=== PATIENT | male | born 1935 | race Caucasian/White ===

== ENCOUNTER 2017-09-18 18:01 | Emergency (ER) | payer OTHER ==
--- NOTE | 2017-09-18 20:05 | RAD REPORT ---
EXAM DESCRIPTION: RAD - Abdomen Acute Series - 09/18/2017 7:49 pm CLINICAL HISTORY: Abdominal pain FINDINGS: The bowel gas pattern is unremarkable with moderate amount of stool throughout the colon. Free air is not seen beneath the diaphragm. Mild bibasilar interstitial lung opacities may represent pneumonitis or pulmonary fibrosis. Vascular calcifications are evident.
[2017-09-18] MEDS ORDERED: MINERAL OIL ENEMA 135 ML BTL PR ONE (20:33)
[2017-09-18 21:53] LABS: Absolute Lymphocytes (CBC) 1.8 K/uL (0.7-4.9); Absolute Monocytes 0.8 K/uL (0.1-1.3); Absolute Neutrophil 7.2 K/uL (1.8-8.0); Basophils % 0.9 % (0-1.3); Eosinophils % 4.5 % (0-4.4); Hematocrit 38.1 % (39.6-49.0); Lymphocytes % 17.7 % (15.3-44.8); MCH 28.4 pg (27.0-35.0); MCV 86.5 fL (80-100)
[2017-09-18 22:11] LABS: Albumin 3.1 g/dL (3.4-5.0); Bilirubin Direct 0.2 mg/dL (0-0.2); Bilirubin Total 0.7 mg/dL (0.2-1.0); Potassium 3.6 mmol/L (3.5-5.1); Protein, Total 7.9 g/dL (6.4-8.2)
--- NOTE | 2017-09-18 22:32 | EDPHYS ---
Physician Documentation [facility] Name: Hayden Marie Age: 82 yrs Sex: Male : 1935 Arrival Date: 09/18/2017 Time: 18:05 Bed 4 Private MD: Vance Thomas E ED Physician Amor Faith HPI: 09/18 19:18 This 82 yrs old Male presents to ER via Ambulatory with complaints of pkl Constipation. 19:18 Onset: The symptoms/episode began/occurred 1 week(s) ago. Associated signs and pkl symptoms: none. Historical: - Allergies: 18:25 Xanax; aj1 18:25 Geodon; aj1 - Home Meds: 18:25 atenolol 50 mg Oral tab 1 tab 2 times per day [Active]; hydrochlorothiazide 25 mg Oral aj1 tab 0.5 tab once daily [Active]; simvastatin 40 mg Oral tab 1 tab once daily [Active]; lisinopril 20 mg Oral tab 1 tab once daily [Active]; temazepam 15 mg Oral cap 1 cap once daily [Active]; Spiriva with HandiHaler 18 mcg inhalation CpDv 1 cap once daily [Active]; Symbicort 160-4.5 mcg/actuation inhalation HFAA 2 puffs 2 times per day [Active]; allopurinol 300 mg Oral tab 1 tab once daily [Active]; Lyrica Oral [Active]; - PMHx: 18:15 Hypertension; Hyperlipidemia; aj1 - Immunization history:: Flu vaccine is up to date. - Social history:: Smoking status: Patient/guardian denies using tobacco. - Ebola Screening: : Patient denies travel to an Ebola-affected area in the 21 days before illness onset. ROS: 19:18 Eyes: Negative for injury, pain, redness, and discharge, ENT: Negative for injury, pkl pain, and discharge, Neck: Negative for injury, pain, and swelling, Cardiovascular: Negative for chest pain, palpitations, and edema, Respiratory: Negative for shortness of breath, cough, wheezing, and pleuritic chest pain. 19:18 Abdomen/GI: Positive for constipation. 19:18 Back: Negative for acute changes. 19:18 : Negative for urinary symptoms. 19:18 MS/extremity: Negative for acute changes. 19:18 Skin: Negative for rash. 19:18 Neuro: Negative for altered mental status. Exam: 19:18 Head/Face: Normocephalic, atraumatic. Eyes: Pupils equal round and reactive to light, pkl extra-ocular motions intact. Lids and lashes normal. Conjunctiva and sclera are non-icteric and not injected. Cornea within normal limits. Periorbital areas with no swelling, redness, or edema. ENT: Nares patent. No nasal discharge, no septal abnormalities noted. Tympanic membranes are normal and external auditory canals are clear. Oropharynx with no redness, swelling, or masses, exudates, or evidence of obstruction, uvula midline. Mucous membranes moist. Neck: Trachea midline, no thyromegaly or masses palpated, and no cervical lymphadenopathy. Supple, full range of motion without nuchal rigidity, or vertebral point tenderness. No Meningismus. Chest/axilla: Normal chest wall appearance and motion. Nontender with no deformity. No lesions are appreciated. Cardiovascular: Regular rate and rhythm with a normal S1 and S2. No gallops, murmurs, or rubs. Normal PMI, no JVD. No pulse deficits. Respiratory: Lungs have equal breath sounds bilaterally, clear to auscultation and percussion. No rales, rhonchi or wheezes noted. No increased work of breathing, no retractions or nasal flaring. 19:18 Abdomen/GI: Inspection: distension, that is moderate, Bowel sounds: normal, Palpation: abdomen is soft and non-tender, in all quadrants, Rectal exam: Stool: guaiac negative, fecal impaction, that is severe. 19:18 Back: Exam negative for acute changes. 19:18 : Exam negative for acute changes. 19:18 Musculoskeletal/extremity: Exam is negative for acute changes. 19:18 Skin: Exam negative for rash. 19:18 Neuro: Orientation: is normal, Mentation: is normal, Cranial nerves: grossly normal, Motor: is normal. Vital Signs: 18:25 BP 112 / 79; Pulse 80; Resp 20; Temp 97.9; Pulse Ox 94% on R/A; Weight 77.11 kg (R); aj1 Height 5 ft. 10 in. (177.80 cm) (R); 19:15 BP 130 / 56; Pulse 79; Resp 20; Pulse Ox 94% on R/A; Pain 0/10; ak1 20:09 BP 135 / 76; Pulse 75; Resp 20; Pulse Ox 95% on R/A; Pain 0/10; ak1 21:49 BP 142 / 71; Pulse 79; Resp 20; Temp 98.1; Pulse Ox 95% on R/A; Pain 0/10; ak1 22:40 BP 131 / 74; Pulse 79; Resp 20; Pulse Ox 95% on R/A; Pain 0/10; ak1 18:25 Body Mass Index 24.39 (77.11 kg, 177.80 cm) aj1 MDM: 19:05 Patient medically screened. pkl 22:29 Data reviewed: vital signs, nurses notes, lab test result(s), radiologic studies, plain pkl films. ED course: Patient had good bowel movement in ER. Feeling much better.. 09/18 21:37 Order name: Amylase, Serum; Complete Time: 22:29 pkl 09/18 21:37 Order name: Basic Metabolic Panel; Complete Time: 22:29 pkl 09/18 21:37 Order name: CBC with Diff pkl 09/18 21:37 Order name: Creatinine for Radiology; Complete Time: 22:29 pkl 09/18 21:37 Order name: Hepatic Function; Complete Time: 22:29 pkl 09/18 21:37 Order name: Lipase; Complete Time: 22:29 pkl 09/18 19:17 Order name: XRAY Abdomen Acute Series; Complete Time: 21:36 pkl 09/18 21:37 Order name: IV Saline Lock; Complete Time: 21:42 pkl 09/18 21:37 Order name: Labs collected and sent; Complete Time: 21:42 pkl 09/18 22:08 Order name: CBC Smear Scan EDMS Administered Medications: 20:07 Drug: NS 0.9% 1000 ml Route: IV; Rate: 100 ml/hr; Site: right antecubital; ak1 21:43 Follow up: IV Status: Infusion continued upon admission ak1 22:47 Follow up: Response: No adverse reaction; IV Status: Order to discontinue infusion jd3 20:54 Drug: Mineral Oil 30 ml Route: MA; ak1 21:42 Follow up: Response: No adverse reaction ak1 Point of Care Testing: Guaiac: 19:18 Stool Guaiac: Negative; Stool Hemoccult Control: Pass; ak1 Disposition: 09/18/17 22:31 Discharged to Home. Impression: Constipation. - Condition is Stable. - Medication Reconciliation Form, Thank You Letter, Antibiotic Education, Prescription Opioid Use form. - Follow up: Vance Thomas MD; When: 2 - 3 days; Reason: Re-evaluation by your physician. - Problem is new. - Symptoms have improved. Signatures: Dispatcher [employer] EDJoana Galeana RN RN aj1 Amor Faith MD MD pkKath Ramsey RN RN ak1 Femi Mcknight RN RN jd3 Corrections: (The following items were deleted from the chart) 18:25 18:15 Allergies: No Known Allergies; aj1 aj 18:25 18:15 Home Meds: cholesterol medication; aj1 aj 18:25 18:15 Home Meds: blood pressure medication; aj1 aj 22:39 21:37 [facility] 22:48 22:31 09/18/2017 22:31 Discharged to Home. Impression: Constipation. Condition is jd3 Stable. Forms are Medication Reconciliation Form, Thank You Letter, Antibiotic Education, Prescription Opioid Use. Follow up: Vance Thomas; When: 2 - 3 days; Reason: Re-evaluation by your physician. Problem is new. Symptoms have improved. pkl
--- NOTE | 2017-09-18 22:32 | ER ---
Nurse's Notes [facility] Name: Hayden Marie Age: 82 yrs Sex: Male : 1935 Arrival Date: 09/18/2017 Time: 18:05 Bed 4 Private MD: Vance Thomas E Diagnosis: Constipation Presentation: 09/18 18:10 Presenting complaint: Patient states: Constipation for the past week, patient states aj1 that he has not had a bowel movement at all in that time. Reports lower abdominal pain. Denies N/V. Denies fever. Transition of care: patient was not received from another setting of care. Onset of symptoms was September 11, 2017. Risk Assessment: Do you want to hurt yourself or someone else? Patient reports no desire to harm self or others. Initial Sepsis Screen: Does the patient meet any 2 criteria? No. Patient's initial sepsis screen is negative. Does the patient have a suspected source of infection? No. Patient's initial sepsis screen is negative. Care prior to arrival: None. 18:10 Method Of Arrival: Ambulatory [facility] 18:10 Acuity: MERCEDES 3 aj1 Triage Assessment: 18:15 General: Appears in no apparent distress. comfortable, Behavior is calm, cooperative, aj1 appropriate for age. Pain: Complains of pain in right lower quadrant and left lower quadrant Pain currently is 3 out of 10 on a pain scale. 18:25 Neuro: Level of Consciousness is awake, alert, obeys commands. Cardiovascular: aj1 Patient's skin is warm and dry. Respiratory: Airway is patent Respiratory effort is even, unlabored, Respiratory pattern is regular, symmetrical. GI: Reports constipation, Patient currently denies diarrhea, nausea, vomiting. Historical: - Allergies: 18:25 Xanax; aj1 18:25 Geodon; aj1 - Home Meds: 18:25 atenolol 50 mg Oral tab 1 tab 2 times per day [Active]; hydrochlorothiazide 25 mg Oral aj1 tab 0.5 tab once daily [Active]; simvastatin 40 mg Oral tab 1 tab once daily [Active]; lisinopril 20 mg Oral tab 1 tab once daily [Active]; temazepam 15 mg Oral cap 1 cap once daily [Active]; Spiriva with HandiHaler 18 mcg inhalation CpDv 1 cap once daily [Active]; Symbicort 160-4.5 mcg/actuation inhalation HFAA 2 puffs 2 times per day [Active]; allopurinol 300 mg Oral tab 1 tab once daily [Active]; Lyrica Oral [Active]; - PMHx: 18:15 Hypertension; Hyperlipidemia; aj1 - Immunization history:: Flu vaccine is up to date. - Social history:: Smoking status: Patient/guardian denies using tobacco. - Ebola Screening: : Patient denies travel to an Ebola-affected area in the 21 days before illness onset. Screenin:15 Abuse screen: Denies threats or abuse. Denies injuries from another. Nutritional ak1 screening: No deficits noted. Tuberculosis screening: No symptoms or risk factors identified. Fall Risk None identified. Assessment: 19:15 General: Appears in no apparent distress. Behavior is calm, cooperative. Pain: Denies ak1 pain. Neuro: No deficits noted. Cardiovascular: No deficits noted. Respiratory: No deficits noted. GI: Abdomen is distended, Bowel sounds present X 4 quads. Abd is non tender X 4 quads Abd is rigid X 4 quads. Reports constipation, last BM was last week. pt stated he tried 2 fleet enemas at home as well as OTC stool softeners with no success. : No signs and/or symptoms were reported regarding the genitourinary system. EENT: No signs and/or symptoms were reported regarding the EENT system. Derm: No signs and/or symptoms reported regarding the dermatologic system. Musculoskeletal: No signs and/or symptoms reported regarding the musculoskeletal system. 20:54 Reassessment: Patient appears in no apparent distress at this time. pt tolerated ak1 procedure well. will continue to monitor. 21:38 Reassessment: Patient appears in no apparent distress at this time. pt remains ak1 constipated, no BM after enema. ERP notified. 22:28 Reassessment: pt had large BM, ERP notified. pt stated he does not wish to be admitted. ak1 Vital Signs: 18:25 BP 112 / 79; Pulse 80; Resp 20; Temp 97.9; Pulse Ox 94% on R/A; Weight 77.11 kg (R); aj1 Height 5 ft. 10 in. (177.80 cm) (R); 19:15 BP 130 / 56; Pulse 79; Resp 20; Pulse Ox 94% on R/A; Pain 0/10; ak1 20:09 BP 135 / 76; Pulse 75; Resp 20; Pulse Ox 95% on R/A; Pain 0/10; ak1 21:49 BP 142 / 71; Pulse 79; Resp 20; Temp 98.1; Pulse Ox 95% on R/A; Pain 0/10; ak1 22:40 BP 131 / 74; Pulse 79; Resp 20; Pulse Ox 95% on R/A; Pain 0/10; ak1 18:25 Body Mass Index 24.39 (77.11 kg, 177.80 cm) aj1 ED Course: 18:05 Patient arrived in ED. sb2 18:05 Vance Thomas MD is Private Physician. sb2 18:14 Triage completed. aj1 18:25 Arm band placed on Patient placed in waiting room, Patient notified of wait time. aj1 19:04 Kath Prado, RN is Primary Nurse. ak1 19:05 Amor Faith MD is Attending Physician. pkl 19:15 Patient has correct armband on for positive identification. Placed in gown. Bed in low ak1 position. Call light in reach. Side rails up X 1. Adult w/ patient. Pulse ox on. NIBP on. 19:15 Served as a camera repairer during rectal exam. ak1 19:28 Assisted to bedside commode. ak1 19:46 Patient moved to radiology via wheelchair. kp1 19:46 X-ray completed. Patient tolerated procedure well. kp1 19:47 XRAY Abdomen Acute Series In Process Unspecified. EDMS 20:08 Inserted saline lock: 20 gauge in right antecubital area, using aseptic technique. ak1 22:30 Vance Thomas MD is Referral Physician. pkl 22:41 IV discontinued, intact, bleeding controlled, No redness/swelling at site. Pressure jd3 dressing applied. Administered Medications: 20:07 Drug: NS 0.9% 1000 ml Route: IV; Rate: 100 ml/hr; Site: right antecubital; ak1 21:43 Follow up: IV Status: Infusion continued upon admission ak1 22:47 Follow up: Response: No adverse reaction; IV Status: Order to discontinue infusion jd3 20:54 Drug: Mineral Oil 30 ml Route: DC; ak1 21:42 Follow up: Response: No adverse reaction ak1 Point of Care Testing: Guaiac: 19:18 Stool Guaiac: Negative; Stool Hemoccult Control: Pass; ak1 Outcome: 21:49 Condition: stable ak1 21:49 Instructed on the need for admit. 22:31 Discharge ordered by . rodriguez 22:47 Discharged to home ambulatory, with family. jd3 22:48 Patient left the ED. jd3 Signatures: Dispatcher [employer] EDJoana Galeana RN RN [email or web address] Amor Faith MD MD pkl Krenek, Amber, RN RN ak1 Dot Huitron Jonathon, RN RN jd3 Meeta Cantu2 Corrections: (The following items were deleted from the chart) 18:25 18:15 Allergies: No Known Allergies; [place] [id number] 18:25 18:15 Home Meds: cholesterol medication; [place] [id number] 18:25 18:15 Home Meds: blood pressure medication; [place] [id number]
[2017-09-18 22:59] LABS: Anisocytosis 2+; Blood Morphology Comment NOTED (NOT SEEN); Platelet Estimate ADEQ; Teardrop Cell 2+; Urine White Blood Cell Casts OK
[2017-09-18 23:02] VITALS: O2SAT 95
[2017-09-18 23:03] VITALS: TEMP 98.1
[2017-09-18 23:04] VITALS: BP 131/74
== END 2017-09-18 22:48 | disposition home or self-care (01) ==
LOC: ER 18:01
DX: K59.00 Constipation, unspecified (principal); I10 Essential (primary) hypertension; E78.5 Hyperlipidemia, unspecified; Z88.8 Allergy status to other drugs, medicaments and biological substances
CPT/HCPCS: 36415; 74022; 80048; 80076; 82150; 83690; 85025; 96360; 96361; 99284

== ENCOUNTER 2017-11-30 07:52 | Inpatient (IN) | payer OTHER ==
[2017-11-30] MEDS ORDERED: NA CHLORIDE 0.9% 3,000 ML ONE (08:05)
[2017-11-30] MEDS ORDERED: NA CHLORIDE 0.9% 0 ML ONE (08:19)
[2017-11-30] MEDS ORDERED: MIDAZOLAM HCL 2 MG/2 ML INJ ONE (08:21)
[2017-11-30] MEDS ORDERED: PROPOFOL 1,000 MG/100 ML VIAL IV ONE (08:21)
[2017-11-30] MEDS ORDERED: NOREPINEPHRINE 4mg/D5W 250mL 4 MG/250 ML BAG IV ONE (08:28)
[2017-11-30] MEDS ORDERED: AMIODARONE HCL 450 MG in D5W 241 ML IV ONE (08:30)
[2017-11-30 08:41] LABS: Arterial Blood Carboxyhemoglob 0.8 % (0-1.5); Blood Gas Oxyhemoglobin 95.4 % (94-97); Blood O2 Saturation 96.9 % (92-98.5)
[2017-11-30] MEDS ORDERED: FENTANYL CITR 100 MCG/2 ML ONE (08:41)
[2017-11-30 09:08] LABS: Absolute Lymphocytes (CBC) 5.8 K/uL (0.7-4.9); Absolute Monocytes 0.5 K/uL (0.1-1.3); Absolute Neutrophil 11.4 K/uL (1.8-8.0); Eosinophils % 6.3 % (0-4.4); Hematocrit 34.2 % (39.6-49.0); Lymphocytes % 29.9 % (15.3-44.8); MCH 28.4 pg (27.0-35.0); MCV 93.1 fL (80-100); MPV 10.9 fL (7.6-11.3); Monocytes % 2.5 % (3.3-12.3); RBC Red Blood Cell Count 3.68 M/uL (4.33-5.43)
[2017-11-30 09:09] LABS: Protime INR 1.09
--- NOTE | 2017-11-30 09:14 | RAD REPORT ---
EXAM DESCRIPTION: RAD - Chest Single View - 11/30/2017 8:36 am CLINICAL HISTORY: Dyspnea, code 99, intubation COMPARISON: September 18 TECHNIQUE: AP portable chest image was obtained 0830 hours . FINDINGS: Patchy interstitial and alveolar opacities are present in the lung dutta. The baseline in terstitial fibrotic pattern is not substantially different. Inspiratory effort is shallow. Resuscitat ion paddles are in place. Endotracheal tube tip is at the T5 level 1 centimeter above the dmitriy. Hea rt size and vasculature are normal range for portable supine projection. No pneumothorax or large ple ural effusion. No acute bony abnormality seen. No acute aortic findings suspected. IMPRESSION: Endotracheal tube tip approximately 1 centimeter above the dmitriy. 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 Interstitial and patchy alveolar opacities are pr esent likely from edema.
--- NOTE | 2017-11-30 09:39 | RAD REPORT ---
EXAM DESCRIPTION: CT - Head Brain Wo Cont - 11/30/2017 9:29 am CLINICAL HISTORY: Transient alteration of awareness, intubation, altered mental status COMPARISON: None. TECHNIQUE: Axial 5 mm thick images of the head were obtained without IV contrast. All CT scans are performed using dose optimization technique as appropriate and may include automated exposure control or mA/KV adjustment according to patient size. FINDINGS: No intracranial hemorrhage, mass, edema or shift of mid-line structures. No acute infarcti on changes seen. Moderate atrophy and chronic ischemic changes present. Ventricular size is in propor tion to the amount of volume loss. Arterial tree calcifications are present. Right mastoid air cells are clear. Left mastoid opacification is present with external auditory canal and middle ear opacification as well. No air-fluid level in the paranasal sinuses. Nasopharyngeal op acification is present. No acute bony findings. IMPRESSION: Moderate atrophy and chronic ischemic change with no acute intracranial finding. Opacification of the naso pharynx is secondary to the endotracheal tube placement. Left mastoid air cell and middle ear opacification may be related to intubation as well. Otitis media or mastoiditis could also be present predating the intubation.
[2017-11-30 09:49] LABS: Potassium 3.7 mmol/L (3.5-5.1)
[2017-11-30 09:51] LABS: CKMB Creatine Kinase MB 14.6 ng/mL (0.3-3.6); Troponin (Emerg Dept Use Only) 0.8 ng/mL (0.0-0.045)
[2017-11-30 09:51] LABS: Urine Blood NEGATIVE (NEG); Urine Glucose NEGATIVE (NEG); Urine Protein TRACE (NEG)
[2017-11-30] MEDS ORDERED: ASPIRIN 600 MG/SUPP PR ONE (09:59)
[2017-11-30] MEDS ORDERED: VANCOMYCIN 1 GM/250 ML BAG ONE (10:00)
[2017-11-30] MEDS ORDERED: PIPER/TAZO/NS 3.375gm 3.375 GM/100 ML BAG ONE (10:00)
--- NOTE | 2017-11-30 10:13 | ER ---
Nurse's Notes [facility] Name: Hayden Marie Age: 82 yrs Sex: Male : 1935 Arrival Date: 11/30/2017 Time: 07:58 Bed 3 Private MD: Diagnosis: Acute respiratory failure;Altered mental status, unspecified;Hypotension;Sepsis Presentation: 11/30 07:55 Method Of Arrival: EMS: [facility] tw2 07:55 Presenting complaint: EMS states: initial call for SOB. Transition of care: patient was tw2 not received from another setting of care. Onset of symptoms was November 30, 2017. Risk Assessment: Do you want to hurt yourself or someone else? Patient reports no desire to harm self or others. Initial Sepsis Screen: Does the patient meet any 2 criteria? Temp <36.0*C (96.8*F)) or > 38.3*C (100.9*F). Mean Arterial Pressure (MAP) < 65. Altered Mental Status. Yes Does the patient have a suspected source of infection? No. Patient's initial sepsis screen is negative. Care prior to arrival: Oxygen administered. via a non-rebreather mask. 07:55 Acuity: MERCEDES 1 tw2 07:56 Compressions began at 07:56. tw2 Triage Assessment: 07:55 General: Appears distressed, uncomfortable, obese, Behavior is unresponsive. General: bp PT FOUND TO BE AGONAL AND PULSELESS, VFIB ON MONITOR ON ARRIVAL. CPR INITIATED ON ARRIVAL. Pain: Unable to use pain scale. Patient is unresponsive. Historical: - Allergies: 08:42 Geodon; tw2 08:42 Xanax; tw2 - Home Meds: 08:42 allopurinol 300 mg Oral tab 1 tab once daily [Active]; atenolol 50 mg Oral tab 1 tab 2 tw2 times per day [Active]; hydrochlorothiazide 25 mg Oral tab 0.5 tab once daily [Active]; lisinopril 20 mg Oral tab 1 tab once daily [Active]; Lyrica Oral [Active]; simvastatin 40 mg Oral tab 1 tab once daily [Active]; Spiriva with HandiHaler 18 mcg inhalation CpDv 1 cap once daily [Active]; Symbicort 160-4.5 mcg/actuation inhalation HFAA 2 puffs 2 times per day [Active]; temazepam 15 mg Oral cap 1 cap once daily [Active]; - PMHx: 08:42 Hyperlipidemia; Hypertension; tw2 - Immunization history:: Adult Immunizations. - Social history:: Smoking status: . - Ebola Screening: : Patient denies travel to an Ebola-affected area in the 21 days before illness onset. - Family history:: not pertinent. - Hospitalizations: : No recent hospitalization is reported. Screenin:00 Abuse screen: Denies threats or abuse. Denies injuries from another. Nutritional bp screening: No deficits noted. Tuberculosis screening: No symptoms or risk factors identified. 09:00 Fall Risk Secondary diagnosis (15 points) sedated and intubated. tw2 Assessment: 07:55 CPR assessment: unresponsive, agonal respirations, pulses present w/ compressions. bp Cardiac rhythm is V fib. General: Appears distressed, Behavior is unresponsive. Neuro: Level of Consciousness is unresponsive. EENT: Nares with drainage noted. Cardiovascular: Rhythm is ventricular fibrillation. Respiratory: Airway is compromised Respiratory pattern is agonal. GI: No deficits noted. Abdomen is non-distended. : Penile discharge is white. Derm: Wound noted left elbow. Musculoskeletal: Circulation, motion, and sensation intact. Range of motion: intact in all extremities. 07:55 General: RECD 82YO WM VIA [facility], ORIGINAL CALL OUT FOR COPD. PT RESPONSIVE BUT bp ALTERED ON SCENE, UNCOOPERATIVE WITH NRB EN ROUTE. ORIGINAL ROOM AIR SAT 80% ON SCENE, 92% ON NRB EN ROUTE. PT REMOVED OWN NRB EN ROUTE. ON ARRIVAL RESPIRATORY PATTERN NOTED TO BE AGONAL, PT DUSKY/CYANOTIC. NO PULSE PALPABLE, CPR INITIATED. 07:56 Reassessment: CPR INITIATED. bp 08:00 Reassessment: 1 AMP EPI R FA. bp 08:02 Reassessment: PULSE CHECK. VFIB ON MONITOR, UNSYNC DEFIB \T\ 200J. CPR RESUMED. 1 AMP bp BICARB VIA R FA. 08:04 Reassessment: ETT 7.5 PLACED BY , CONFIRMED BY COLORMIMETIC CO2 DETECTOR. PEA NOTED bp ON MONITOR. 1 AMP EPI VIA R FA. 08:10 Reassessment: 150MG AMIODARONE BOLUS VIA R FA. PEA ON MONITOR. bp 08:14 Reassessment: R FEM CVC PLACED BY . SR NOTED ON MONITOR. +PULSES. bp 08:15 Reassessment: ROSC. SEE CPR SHEET FOR DETAILS. PT INTUBATED, CVC IN PLACE. PT REMAINS bp GCS 3. 09:00 Reassessment: FAMILY AT B/S. CT PENDING. NGT AND ETT PLACEMENT VERIFIED BY CXR. bp 10:00 Reassessment: FAMILY AT B/S. VENT AT AC18, 550 TV, PEEP 5, 50% FI02, ETT 7.5 AT 23 CM. bp AMIO GTT \T\ 1MCG/MIN, LEVOPHED \T\ 17.5 MG/MIN, PROPOFOL \T\ 12.5 MCG/KG/MIN. REID DRAINING TO GRAVITY, NGT TO LIWS. ICU ADMIT IN PROCESS. Vital Signs: 08:20 BP 81 / 51; Pulse 66; Resp 18; Pulse Ox 95% on ETT vent; tw2 08:24 BP 74 / 44; Pulse 72; Resp 21; Temp 95.4; Pulse Ox 100% on ETT vent; tw2 08:30 BP 78 / 49; Pulse 78; Resp 18; Pulse Ox 98% on ETT vent; tw2 08:35 BP 81 / 54; Pulse 83; Resp 18; Temp 95.2(C); Pulse Ox 98% on ETT vent; tw2 08:37 Weight 75 kg (R); tw2 08:40 BP 75 / 41; Pulse 52; Resp 18; Pulse Ox 98% on ETT vent; tw2 08:45 BP 82 / 46; Pulse 75; Resp 17; Pulse Ox 98% on ETT vent; tw2 08:50 BP 76 / 44; Pulse 75; Resp 18; Pulse Ox 98% on ETT vent; tw2 08:55 BP 92 / 56; Pulse 67; Resp 18; Pulse Ox 98% on ETT vent; tw2 09:00 BP 85 / 56; Pulse 66; Resp 18; Pulse Ox 98% on ETT vent; tw2 09:00 BP 85 / 56; Pulse 66; Resp 18; Pulse Ox 98% on ETT vent; tw2 09:05 BP 88 / 49; Pulse 77; Resp 18; Pulse Ox 98% on ETT vent; tw2 09:10 BP 88 / 49; Pulse 73; Resp 18; Temp 94(C); Pulse Ox 98% on ETT vent; tw2 09:15 BP 91 / 48; Pulse 72; Resp 18; Temp 94(C); Pulse Ox 98% on ETT vent; tw2 09:20 BP 77 / 48; Pulse 72; Resp 18; Pulse Ox 98% on ETT ambu; tw2 09:25 BP 77 / 48; Pulse 72; Resp 18; Pulse Ox 98% on ETT ambu; tw2 09:42 BP 74 / 40; Pulse 66; Resp 18; Temp 93.7; Pulse Ox 95% on ETT vent; tw2 09:45 BP 73 / 41; Pulse 65; Resp 18; Pulse Ox 95% on ETT vent; tw2 09:50 BP 71 / 40; Pulse 69; Resp 18; Pulse Ox 95% on ETT vent; jb1 09:55 BP 77 / 45; Pulse 67; Resp 18; Pulse Ox 95% on ETT vent; tw2 10:00 BP 83 / 49; Pulse 66; Resp 18; Pulse Ox 95% on ETT vent; tw2 10:05 BP 92 / 47; Pulse 66; Resp 18; Pulse Ox 96% on ETT vent; tw2 10:10 BP 87 / 48; Pulse 67; Resp 18; Temp 94.1; Pulse Ox 95% on ETT vent; tw2 10:15 BP 86 / 49; Pulse 65; Resp 18; Pulse Ox 95% on ETT vent; tw2 10:25 BP 85 / 48; Pulse 65; Resp 18; Temp 94.3(C); Pulse Ox 96% on ETT vent; tw2 10:30 BP 92 / 54; Pulse 68; Resp 18; Pulse Ox 96% on ETT vent; tw2 10:35 BP 111 / 54; Pulse 69; Resp 18; Pulse Ox 100% on ETT vent; tw2 10:35 Temp 94.8(C); tw2 10:40 BP 98 / 56; Pulse 67; Resp 18; Pulse Ox 97% on ETT vent; tw2 10:45 BP 100 / 56; Pulse 67; Resp 18; Pulse Ox 98% on ETT vent; tw2 10:50 BP 98 / 59; Pulse 67; Resp 18; Temp 95(C); Pulse Ox 98% on ETT vent; tw2 10:51 Temp 94.9(C); tw2 10:55 BP 98 / 57; Pulse 67; Resp 18; Temp 95(C); Pulse Ox 98% ; bp 11:00 BP 99 / 57; Pulse 67; Resp 18; Temp 95.2; Pulse Ox 98% ; bp 11:05 BP 97 / 59; Pulse 68; Resp 18; Temp 95.3; Pulse Ox 98% ; bp 11:10 BP 101 / 57; Pulse 69; Resp 18; Temp 95.7; Pulse Ox 99% ; bp 11:15 BP 94 / 57; Pulse 69; Resp 18; Pulse Ox 99% on ETT vent; tw2 11:20 BP 102 / 61; Pulse 80; Resp 18; Pulse Ox 99% on ETT vent; tw2 11:25 BP 99 / 57; Pulse 69; Resp 18; Temp 96(C); Pulse Ox 99% on ETT vent; tw2 11:30 BP 95 / 58; Pulse 70; Resp 14; Temp 96.1; Pulse Ox 99% ; bp 11:30 BP 95 / 58; Pulse 69; Resp 18; Temp 96.1(C); Pulse Ox 99% on ETT vent; tw2 08:24 warm blankets layered on at this time. Vent: assist control Rate 18, tidal vol 550 per tw2 Kaur,RT 08:35 bear hugger applied tw2 09:15 provider notified, ok to go to CT at this time. tw2 09:[address] tw2 09:[address] tw2 09:42 provider aware tw2 10:25 rate increase of Levo ordered at this time per Dr. Anton tw2 ED Course: 07:55 Patient has correct armband on for positive identification. Placed in gown. Bed in low bp position. Call light in reach. Side rails up X2. site monitor on. Pulse ox on. NIBP on. 07:58 Patient arrived in ED. rn 07:58 Missed attempt(s): 22 gauge in right antecubital area. per Yury,RN. Missed attempt(s): tw2 22 gauge in right forearm. per Yury<RN. Bleeding controlled, band aid applied, catheter tip intact. Missed attempt(s): 22 gauge in left forearm. Bleeding controlled, band aid applied, catheter tip intact. Missed attempt(s): 22 gauge in left antecubital area. Bleeding controlled, band aid applied, catheter tip intact. 07:59 Inserted saline lock: 22 gauge in right forearm, using aseptic technique. ,using tw2 aseptic technique. per KATIE Licona. 08:04 Bed in low position. Intubation: 7.5 Fr. ETT placed orally. Performed by Wilfred Anton MD tw2 Successful on first attempt. Placement verified by CO2 detector w/ + color change, auscultating bilateral breath sounds, Ventilated with Ambu bag. 08:06 Assisted provider with central line placement. Set up central line tray. Triple lumen tw2 line placed in right femoral. Line placed by Wilfred Anton MD Placement verified by blood return, Dressed with Tegaderm, Blood was collected. 08:14 EKG done, by automatic equipment technician. reviewed by Wilfred Anton MD. at1 08:15 Wilfred Anton MD is Attending Physician. rn 08:20 NGT: inserted 16 Fr. via left nare. verified placement of air over stomach, to tw2 intermittent suction. 08:25 X-ray completed. Portable x-ray completed in exam room. Patient tolerated procedure jb2 well. 08:37 XRAY CXR (1 view) In Process Unspecified. EDMS 08:40 Triage completed. tw2 08:40 Arm band placed on. tw2 08:50 Sputum Culture Sent. tw2 09:05 Yury Renteria, RN is Primary Nurse. bp 09:05 OG 14F to intermediate suction. tw2 09:11 Reid cath inserted, using sterile technique, 16 Fr., by me, balloon inflated, urine jb1 specimen collected. 09:11 Urine collected: Reid catheter specimen, cloudy, alfred colored. jb1 09:29 CT Head Brain wo Cont In Process Unspecified. EDMS 10:06 EKG done, by automatic equipment technician. reviewed by Wilfred Anton MD Repeat EKG. at1 10:12 Mildred Roque MD is Hospitalizing Provider. rn 11:46 Patient admitted, IV remains in place. bp Restraints: 08:15 Non-Violent Restraint: Order obtained. Initiated on November 30, 2017 at 08:00 Restraint bp Education provided to family/significant other/legally authorized lifeline representatives. Actions/Behavior observed: Confused/disoriented, has difficulty remembering/follow instructions, has decreased level of consciousness, unable to follow instructions, Less restrictive alternatives attempted: decrease environmental stimuli, 1:1 patient care, placed near Nurse station, reoriented to location, medications evaluated, medicated for pain/anxiety, repositioned, performed diversional activities, lines/tubes covered, eliminated unnecessary lines/tubes, Alternative interventions: Ineffective. Clinical justification for use: airway protection, line protection, patient safety, Mental status: agitated/restless, Cognition: unable to follow commands, Circulation: Within defined parameters (based on Cardiovascular assessment) Skin integrity: Within defined parameters (based on Integumentary assessment) Signs of injury related to restraint: No injuries noted. Range of Motion (ROM): performed. Hydration/Food: patient declined. Elimination/Hygiene: with urinary catheter, Restraint status: Soft wrist restraint (Right) Started. Soft wrist restraint (Left) Started. Criteria to discontinue Restraint not met. Restraint continued. 10:00 Non-Violent Restraint: Actions/Behavior observed: has decreased level of consciousness, bp unable to follow instructions, Less restrictive alternatives attempted: decrease environmental stimuli, 1:1 patient care, placed near Nurse station, reoriented to location, medications evaluated, medicated for pain/anxiety, Alternative interventions: Ineffective. Clinical justification for use: airway protection, line protection, patient safety, Mental status: agitated/restless, confused, Cognition: unable to follow commands, Circulation: Within defined parameters (based on Cardiovascular assessment) Skin integrity: Within defined parameters (based on Integumentary assessment) Signs of injury related to restraint: No injuries noted. Range of Motion (ROM): performed. Elimination/Hygiene: with urinary catheter, Restraint status: Soft wrist restraint (Right) Continued. Soft wrist restraint (Left) Continued. Criteria to discontinue Restraint not met. Restraint continued. Administered Medications: 08:00 Drug: Sodium Bicarbonate 1 amp Route: IVP; Site: right femoral; bp 09:07 Follow up: Response: No adverse reaction bp 08:10 Drug: amiodarone 150 mg Route: IVP; Site: right wrist; tw2 08:15 Follow up: Response: No adverse reaction tw2 08:12 Drug: NS 0.9% 1000 ml Route: IV; Rate: 1000 ml; Site: right femoral; tw2 09:00 Follow up: IV Status: Completed infusion; IV Intake: 1000ml bp 08:15 Drug: Versed 3 mg Route: IVP; Site: right femoral; tw2 08:45 Follow up: Response: No adverse reaction tw2 08:26 Drug: Levophed (4 mg/250 mL D5W 4 mcg/min {Note: central line.} Route: IV; Rate: tw2 calculated rate; Site: Other; 08:28 Follow up: Rate change 10 mcg/min tw2 10:05 Follow up: Rate change 15 mcg/min bp 10:35 Follow up: Rate change 17.5 mcg/min bp 11:43 Follow up: IV Status: Infusion continued upon admission tw2 08:30 Drug: amiodarone 900 mg, D5W 500 ml Route: IVPB; Rate: 1 mg/min; Site: right femoral; tw2 12:15 Follow up: IV Status: Infusion continued upon admission tw2 08:36 Drug: fentaNYL (PF) 75 mcg Route: IVP; Site: right forearm; tw2 08:45 Follow up: Response: No adverse reaction tw2 08:36 Drug: Propofol 5 mcg/kg/min Route: IV; Rate: calculated rate; Site: right femoral; tw2 10:34 Follow up: Rate change 12.5 mcg/kg/min bp 11:10 Follow up: Rate change 20 mcg/kg/min bp 11:41 Follow up: IV Status: Infusion continued upon admission tw2 09:45 Drug: Zosyn 3.375 grams Route: IVPB; Infused Over: 60 mins; Site: right forearm; bp 10:33 Follow up: IV Status: Completed infusion; IV Intake: 100ml bp 10:00 Drug: Aspirin Suppository 300 mg Route: TN; bp 10:20 Follow up: Response: No adverse reaction bp 10:30 Drug: vancoMYCIN 1 grams Route: IVPB; Infused Over: 2 hrs; Site: right forearm; bp 11:43 Follow up: IV Status: Infusion continued upon admission tw2 Intake: 09:00 IV: 1000ml; Total: 1000ml. bp 10:33 IV: 100ml; Total: 1100ml. bp Output: 09:46 Urine: 1650ml (Reid); Total: 1650ml. tw2 Outcome: 08:15 Outcome Resuscitation successful tw2 10:13 Decision to Hospitalize by Provider. rn 11:47 Admitted to ICU accompanied by nurse, accompanied by tech, family with patient, via bp stretcher, room 6, with oxygen, on monitor, with chart, Report called to JAXON WILSON 11:47 critical 11:47 Instructed on the need for admit. 12:15 Patient left the ED. tw2 Signatures: Dispatcher [employer] EDMS Eduin Cisneros jb1 QasimSincere jb2 Wilfred Anton MD MD rn Gonzales, Amanda, culinary instructor EKG Tat1 Taylor Kirk RN RN tw2 Yury Renteria RN RN bp Corrections: (The following items were deleted from the chart) 08:45 08:39 BP 81 / 54; Pulse 83bpm; Resp 18bpm; Pulse Ox 98% ET / Ventilator; Temp 95.2F tw2 Catheter; bear hugger applied; tw2 10:05 09:43 BP 73 / 41; Pulse 65bpm; Resp 18bpm; Pulse Ox 95% ET / Ventilator; tw2 tw 10:05 09:58 BP 77 / 45; Pulse 67bpm; Resp 18bpm; Pulse Ox 95% ET / Ventilator; jb1 tw 10:16 10:10 BP 87 / 48; Pulse 67bpm; Resp 18bpm; Pulse Ox 95% ET / Ventilator; tw2 tw 10:50 08:00 Compressions began at 08:00. 10 08:39 Acuity: MERCEDES 1 07:58 Care prior to arrival: Oxygen administered. via a non-rebreather mask, 07:58 Initial Sepsis Screen: Does the patient meet any 2 criteria? Temp <36.0*C tw2 (96.8*F)) or > 38.3*C (100.9*F). Mean Arterial Pressure (MAP) < 65. Altered Mental Status. Yes Does the patient have a suspected source of infection? No. Patient's initial sepsis screen is negative. 07:58 Presenting complaint: EMS states: initial call for SOB 07:58 Transition of care: patient was not received from another setting of care. 07:58 Onset of symptoms was November 30, 2017 07:58 Risk Assessment: Do you want to hurt yourself or someone else? Patient reports no desire to harm self or others. 07:58 Method Of Arrival: EMS: [facility] 11:04 08:15 Reassessment: ROSC. SEE CPR SHEET FOR DETAILS. PT INTUBATED, CVC IN PLACE. PT bp REMAINS GCS 3 bp 11:07 08:00 Non-Violent Restraint: Order obtained. Initiated on November 30, 2017 at 08:00 bp Restraint Education provided to family/significant other/legally authorized lifeline representatives. Actions/Behavior observed: Confused/disoriented, has difficulty remembering/follow instructions, has decreased level of consciousness, unable to follow instructions, Less restrictive alternatives attempted: decrease environmental stimuli, 1:1 patient care, placed near Nurse station, reoriented to location, medications evaluated, medicated for pain/anxiety, repositioned, performed diversional activities, lines/tubes covered, eliminated unnecessary lines/tubes, Alternative interventions: Ineffective. Clinical justification for use: airway protection, line protection, patient safety, Mental status: agitated/restless, Cognition: unable to follow commands, Circulation: Within defined parameters (based on Cardiovascular assessment) Skin integrity: Within defined parameters (based on Integumentary assessment) Signs of injury related to restraint: No injuries noted. Range of Motion (ROM): performed. Hydration/Food: patient declined. Elimination/Hygiene: with urinary catheter, Restraint status: Soft wrist restraint (Right) Started. Soft wrist restraint (Left) Started. Criteria to discontinue Restraint not met. Restraint continued bp 11:40 11:38 Outcome Resuscitation successful tw2 tw2
--- NOTE | 2017-11-30 10:13 | EDPHYS ---
Physician Documentation [facility] Name: Hayden Marie Age: 82 yrs Sex: Male : 1935 Arrival Date: 11/30/2017 Time: 07:58 Bed 3 Private MD: ED Physician Wilfred Anton HPI: 11/30 08:47 This 82 yrs old Male presents to ER via Unassigned with complaints of sob. rn 08:47 The patient has shortness of breath at rest. Onset: The symptoms/episode began/occurred rn 2 day(s) ago. Duration: The symptoms are continuous. The patient's shortness of breath is aggravated by exertion, light activity, supine position. Severity of symptoms: At their worst the symptoms were moderate in the emergency department the symptoms are worse. The patient has experienced similar episodes in the past. Per , sob over last few days, hx of COPD, no chest pain, got worse today, called 911, was talking to EMS, fighting facemask, immediately upon arrival here became somnolent, unresponsive, tachycardic and irregular, difficult to feel pulse, CPR begun.. Historical: - Allergies: 08:42 Geodon; tw2 08:42 Xanax; tw2 - Home Meds: 08:42 allopurinol 300 mg Oral tab 1 tab once daily [Active]; atenolol 50 mg Oral tab 1 tab 2 tw2 times per day [Active]; hydrochlorothiazide 25 mg Oral tab 0.5 tab once daily [Active]; lisinopril 20 mg Oral tab 1 tab once daily [Active]; Lyrica Oral [Active]; simvastatin 40 mg Oral tab 1 tab once daily [Active]; Spiriva with HandiHaler 18 mcg inhalation CpDv 1 cap once daily [Active]; Symbicort 160-4.5 mcg/actuation inhalation HFAA 2 puffs 2 times per day [Active]; temazepam 15 mg Oral cap 1 cap once daily [Active]; - PMHx: 08:42 Hyperlipidemia; Hypertension; tw2 - Immunization history:: Adult Immunizations. - Social history:: Smoking status: . - Ebola Screening: : Patient denies travel to an Ebola-affected area in the 21 days before illness onset. - Family history:: not pertinent. - Hospitalizations: : No recent hospitalization is reported. ROS: 08:47 Unable to obtain ROS due to obtunded state. rn Exam: 08:49 Constitutional: This is a well developed, well nourished patient who is somnolent, rn unresponsive, slow breathing and unresponsive to pain, mottled and cool to touch Head/Face: Normocephalic, atraumatic. Eyes: PERRL ENT: dry MM, no stridor Cardiovascular: tachycardic, irregular, no peripheral pulses obtained Respiratory: bradypnea with poor inspiratory air flow Abdomen/GI: soft, non-tender Skin: Mottled MS/ Extremity: Cool and mottled ext, no pulse Neuro: GCS 3 Vital Signs: 08:20 BP 81 / 51; Pulse 66; Resp 18; Pulse Ox 95% on ETT vent; tw2 08:24 BP 74 / 44; Pulse 72; Resp 21; Temp 95.4; Pulse Ox 100% on ETT vent; tw2 08:30 BP 78 / 49; Pulse 78; Resp 18; Pulse Ox 98% on ETT vent; tw2 08:35 BP 81 / 54; Pulse 83; Resp 18; Temp 95.2(C); Pulse Ox 98% on ETT vent; tw2 08:37 Weight 75 kg (R); tw2 08:40 BP 75 / 41; Pulse 52; Resp 18; Pulse Ox 98% on ETT vent; tw2 08:45 BP 82 / 46; Pulse 75; Resp 17; Pulse Ox 98% on ETT vent; tw2 08:50 BP 76 / 44; Pulse 75; Resp 18; Pulse Ox 98% on ETT vent; tw2 08:55 BP 92 / 56; Pulse 67; Resp 18; Pulse Ox 98% on ETT vent; tw2 09:00 BP 85 / 56; Pulse 66; Resp 18; Pulse Ox 98% on ETT vent; tw2 09:00 BP 85 / 56; Pulse 66; Resp 18; Pulse Ox 98% on ETT vent; tw2 09:05 BP 88 / 49; Pulse 77; Resp 18; Pulse Ox 98% on ETT vent; tw2 09:10 BP 88 / 49; Pulse 73; Resp 18; Temp 94(C); Pulse Ox 98% on ETT vent; tw2 09:15 BP 91 / 48; Pulse 72; Resp 18; Temp 94(C); Pulse Ox 98% on ETT vent; tw2 09:20 BP 77 / 48; Pulse 72; Resp 18; Pulse Ox 98% on ETT ambu; tw2 09:25 BP 77 / 48; Pulse 72; Resp 18; Pulse Ox 98% on ETT ambu; tw2 09:42 BP 74 / 40; Pulse 66; Resp 18; Temp 93.7; Pulse Ox 95% on ETT vent; tw2 09:45 BP 73 / 41; Pulse 65; Resp 18; Pulse Ox 95% on ETT vent; tw2 09:50 BP 71 / 40; Pulse 69; Resp 18; Pulse Ox 95% on ETT vent; jb1 09:55 BP 77 / 45; Pulse 67; Resp 18; Pulse Ox 95% on ETT vent; tw2 10:00 BP 83 / 49; Pulse 66; Resp 18; Pulse Ox 95% on ETT vent; tw2 10:05 BP 92 / 47; Pulse 66; Resp 18; Pulse Ox 96% on ETT vent; tw2 10:10 BP 87 / 48; Pulse 67; Resp 18; Temp 94.1; Pulse Ox 95% on ETT vent; tw2 10:15 BP 86 / 49; Pulse 65; Resp 18; Pulse Ox 95% on ETT vent; tw2 10:25 BP 85 / 48; Pulse 65; Resp 18; Temp 94.3(C); Pulse Ox 96% on ETT vent; tw2 10:30 BP 92 / 54; Pulse 68; Resp 18; Pulse Ox 96% on ETT vent; tw2 10:35 BP 111 / 54; Pulse 69; Resp 18; Pulse Ox 100% on ETT vent; tw2 10:35 Temp 94.8(C); tw2 10:40 BP 98 / 56; Pulse 67; Resp 18; Pulse Ox 97% on ETT vent; tw2 10:45 BP 100 / 56; Pulse 67; Resp 18; Pulse Ox 98% on ETT vent; tw2 10:50 BP 98 / 59; Pulse 67; Resp 18; Temp 95(C); Pulse Ox 98% on ETT vent; tw2 10:51 Temp 94.9(C); tw2 10:55 BP 98 / 57; Pulse 67; Resp 18; Temp 95(C); Pulse Ox 98% ; bp 11:00 BP 99 / 57; Pulse 67; Resp 18; Temp 95.2; Pulse Ox 98% ; bp 11:05 BP 97 / 59; Pulse 68; Resp 18; Temp 95.3; Pulse Ox 98% ; bp 11:10 BP 101 / 57; Pulse 69; Resp 18; Temp 95.7; Pulse Ox 99% ; bp 11:15 BP 94 / 57; Pulse 69; Resp 18; Pulse Ox 99% on ETT vent; tw2 11:20 BP 102 / 61; Pulse 80; Resp 18; Pulse Ox 99% on ETT vent; tw2 11:25 BP 99 / 57; Pulse 69; Resp 18; Temp 96(C); Pulse Ox 99% on ETT vent; tw2 11:30 BP 95 / 58; Pulse 70; Resp 14; Temp 96.1; Pulse Ox 99% ; bp 11:30 BP 95 / 58; Pulse 69; Resp 18; Temp 96.1(C); Pulse Ox 99% on ETT vent; tw2 08:24 warm blankets layered on at this time. Vent: assist control Rate 18, tidal vol 550 per tw2 Kaur,RT 08:35 bear hugger applied tw2 09:15 provider notified, ok to go to CT at this time. tw2 09:[address] tw2 09:[address] tw2 09:42 provider aware tw2 10:25 rate increase of Levo ordered at this time per Dr. Anton tw2 Procedures: 08:49 CPR: See CPR flow sheet. Initial patient assessment: unresponsive, agonal respirations, rn pulses present w/ compressions, The presenting cardiac rhythm is V fib. respirations assisted with BVM, Compressions: began Meds given: Epinephrine Amiodarone, Defibrillation: 200 joules X 1. regained rhythm, regained respirations. Intubation: Ventilated with 100% NRB prior to procedure. O2 saturation prior to procedure was 88 %. Intubated orally using # 4 Estrella blade with 7.5 mm ETT. was successful on first attempt. Cricoid pressure applied during procedure. Tube secured with ETT giraldo at right side of mouth measured 23 cm at lip. Placement verified by CXR, CO2 detector with (+) color change, auscultating bilateral breath sounds, O2 saturation after procedure was 98 %. Patient tolerated well. Central Line: the site was prepped with Betadine, a triple lumen catheter was inserted, in the right femoral vein, in 1 attempts. placement was verified, by blood return, the site was dressed with Tegaderm, using sterile technique, the patient tolerated the procedure, well. MDM: 08:15 Patient medically screened. rn 10:08 Differential diagnosis: Anemia Chronic Obstructive Pulmonary Disease Myocardial rn Infarction pneumonia, Pneumothorax pulmonary edema, reactive airway disease, Sepsis. Antibiotic administration: Data reviewed: vital signs, nurses notes, lab test result(s), EKG, radiologic studies, CT scan, plain films, and as a result, I will admit patient. Counseling: I had a detailed discussion with the patient and/or guardian regarding: the historical points, exam findings, and any diagnostic results supporting the discharge/admit diagnosis, lab results, radiology results, the need for further work-up and treatment in the hospital. Response to treatment: the patient's symptoms have mildly improved after treatment, and as a result, I will admit patient. Admission orders: after a detailed discussion of the patient's condition and case, the admit orders are written by me. ED course: Pt more alert, fighting vent and tube, requiring sedation, given abx for elevated WBC count and lactate, fluids, more regular rhythm with amiodarone. Updated family, and will admit to Dr. Roque. . 11/30 08:17 Order name: ABG; Complete Time: 09:00 11/30 08:17 Order name: Blood Culture Adult (2) rn 11/30 08:17 Order name: BMP; Complete Time: : rn 11/30 08:17 Order name: CBC with Diff; Complete Time: 11/30 08:17 Order name: Ckmb; Complete Time: :11/30 08:17 Order name: CPK; Complete Time: :11/30 08:17 Order name: NT PRO-BNP; Complete Time: :11/30 08:17 Order name: PT-INR; Complete Time: :11/30 08:17 Order name: Ptt, Activated; Complete Time: : rn 11/30 08:17 Order name: Troponin (emerg Dept Use Only); Complete Time: :11/30 08:17 Order name: Procalcitonin; Complete Time: : rn 11/30 08:17 Order name: Lactate; Complete Time: 09:37 rn 11/30 08:17 Order name: Flu; Complete Time: 09:31 rn 11/30 08:34 Order name: Sputum Culture eb 11/30 08:17 Order name: XRAY CXR (1 view); Complete Time: 09:31 rn 11/30 08:17 Order name: EKG; Complete Time: 08:18 rn 11/30 08:17 Order name: Cardiac monitoring; Complete Time: 08:29 rn 11/30 09:00 Order name: CT Head Brain wo Cont; Complete Time: 09:40 rn 11/30 09:07 Order name: Urine Dipstick--Ancillary (enter results); Complete Time: 10: 11/30 08:17 Order name: EKG - Nurse/Tech; Complete Time: 08:31 rn 11/30 08:17 Order name: IV Saline Lock; Complete Time: 08:31 11/30 08:17 Order name: Labs collected and sent; Complete Time: 08: 11/30 08:17 Order name: O2 Per Protocol; Complete Time: 08:32 rn 11/30 08:17 Order name: O2 Sat Monitoring; Complete Time: 08:33 rn 11/30 08:30 Order name: NG Tube; Complete Time: 08:31 11/30 08:30 Order name: Floyd; Complete Time: 08:31 11/30 08:31 Order name: Caesar Forrest; Complete Time: 08:45 11/30 10:22 Order name: Restraint:Non-Violent; Complete Time: 10:22 bp Administered Medications: 08:00 Drug: Sodium Bicarbonate 1 amp Route: IVP; Site: right femoral; bp 09:07 Follow up: Response: No adverse reaction bp 08:10 Drug: amiodarone 150 mg Route: IVP; Site: right wrist; tw2 08:15 Follow up: Response: No adverse reaction tw2 08:12 Drug: NS 0.9% 1000 ml Route: IV; Rate: 1000 ml; Site: right femoral; tw2 09:00 Follow up: IV Status: Completed infusion; IV Intake: 1000ml bp 08:15 Drug: Versed 3 mg Route: IVP; Site: right femoral; tw2 08:45 Follow up: Response: No adverse reaction tw2 08:26 Drug: Levophed (4 mg/250 mL D5W 4 mcg/min {Note: central line.} Route: IV; Rate: tw2 calculated rate; Site: Other; 08:28 Follow up: Rate change 10 mcg/min tw2 10:05 Follow up: Rate change 15 mcg/min bp 10:35 Follow up: Rate change 17.5 mcg/min bp 11:43 Follow up: IV Status: Infusion continued upon admission tw2 08:30 Drug: amiodarone 900 mg, D5W 500 ml Route: IVPB; Rate: 1 mg/min; Site: right femoral; tw2 12:15 Follow up: IV Status: Infusion continued upon admission tw2 08:36 Drug: fentaNYL (PF) 75 mcg Route: IVP; Site: right forearm; tw2 08:45 Follow up: Response: No adverse reaction tw2 08:36 Drug: Propofol 5 mcg/kg/min Route: IV; Rate: calculated rate; Site: right femoral; tw2 10:34 Follow up: Rate change 12.5 mcg/kg/min bp 11:10 Follow up: Rate change 20 mcg/kg/min bp 11:41 Follow up: IV Status: Infusion continued upon admission tw2 09:45 Drug: Zosyn 3.375 grams Route: IVPB; Infused Over: 60 mins; Site: right forearm; bp 10:33 Follow up: IV Status: Completed infusion; IV Intake: 100ml bp 10:00 Drug: Aspirin Suppository 300 mg Route: MS; bp 10:20 Follow up: Response: No adverse reaction bp 10:30 Drug: vancoMYCIN 1 grams Route: IVPB; Infused Over: 2 hrs; Site: right forearm; bp 11:43 Follow up: IV Status: Infusion continued upon admission tw2 Disposition: 10:08 Critical Care:. rn Disposition: 11/30/17 10:13 Hospitalization ordered by Mildred Roque for Inpatient Admission. Preliminary diagnosis are Acute respiratory failure, Altered mental status, unspecified, Hypotension, Sepsis. - Bed requested for Intensive Care Unit. - Status is Inpatient Admission. tw2 - Condition is Serious. - Problem is new. - Symptoms have improved. UTI on Admission? No Critical care time excluding procedures: 10:08 Critical care time: Bedside Care: 25 minutes, Consultation: 5 minutes, Family rn Intervention: 5 minutes. Total time: 35 minutes Signatures: Dispatcher [employer] EDMS Wilfred Anton MD MD rn Wise, Tara, RN RN tw2 Yury Renteria RN RN Kina Schreiber Corrections: (The following items were deleted from the chart) 11:22 10:13 Hospitalization Ordered by Mildred Roque MD for Inpatient Admission. Preliminary eb diagnosis is Acute respiratory failure; Altered mental status, unspecified; Hypotension; Sepsis. Bed requested for Intensive Care Unit. Status is Inpatient Admission. Condition is Serious. Problem is new. Symptoms have improved. UTI on Admission? No. rn 12:15 11:22 11/30/2017 10:13 Hospitalization Ordered by Mildred Roque MD for Inpatient tw2 Admission. Preliminary diagnosis is Acute respiratory failure; Altered mental status, unspecified; Hypotension; Sepsis. Bed requested for Intensive Care Unit. Status is Inpatient Admission. Condition is Serious. Problem is new. Symptoms have improved. UTI on Admission? No. eb
[2017-11-30] MEDS ORDERED: ONDANSETRON 4 MG/2 ML VIAL IV PRN (11:52)
[2017-11-30] MEDS ORDERED: NA CHLORIDE 0.9% 1,000 ML IV SCH (11:52)
[2017-11-30] MEDS ORDERED: IPRATROPIUM BROM 0.5MG/2.5ML NEB SCH (12:00)
[2017-11-30] MEDS ORDERED: MIDAZOLAM HCL 2 MG/2 ML INJ IV PRN (12:56)
[2017-11-30] MEDS ORDERED: PROPOFOL 1,000 MG/100 ML VIAL IV PRN (12:56)
[2017-11-30] MEDS: INSULIN -REGULAR HUMAN 50 UNIT/0.5 ML ML SQ SCH ×3 (12:56→21:16)
[2017-11-30] MEDS: IPRATROPIUM BROM 0.5MG/2.5ML NEB SCH ×3 (13:00→19:27)
[2017-11-30] MEDS ORDERED: NA CHLORIDE 0.9% 250 ML IV PRN (13:20)
[2017-11-30] MEDS: NOREPINEPHRINE 4 MG in D5W 250 ML IV PRN ×2 (13:31→15:13)
--- NOTE | 2017-11-30 13:46 | EKG ---
Test Date: 2017-11-30 Test Time: 10:02:49 Railcar Foreman: SIENNA MEASUREMENT RESULTS: Intervals: Rate: 66 NC: 160 QRSD: 106 QT: 504 QTc: 528 [place]: P: 78 NC: 160 QRS: -22 T: 37 INTERPRETIVE STATEMENTS: Normal sinus rhythm Nonspecific ST abnormality Prolonged QT Abnormal ECG Compared to ECG 11/30/2017 08:14:16 ST (T wave) deviation now present Prolonged QT interval now present Atrial fibrillation no longer present Ventricular premature complex(es) no longer present Left-axis deviation no longer present Right bundle-branch block no longer present Electronically Signed On 11-30-17 13:45:16 CDT by Orion Bermudez
--- NOTE | 2017-11-30 13:46 | EKG ---
Test Date: 2017-11-30 Test Time: 08:14:16 Immigration Inspector: SIENNA MEASUREMENT RESULTS: Intervals: Rate: 117 OR: QRSD: 166 QT: 380 QTc: 530 [place]: P: OR: QRS: -77 T: 16 INTERPRETIVE STATEMENTS: Atrial fibrillation with rapid ventricular response with premature ventricular or aberrantly conducted complexes Left axis deviation Right bundle branch block Abnormal ECG Compared to ECG 06/16/2014 10:55:21 Ventricular premature complex(es) now present Left-axis deviation now present Right bundle-branch block now present Sinus bradycardia no longer present Electronically Signed On 11-30-17 13:45:34 CDT by Orino Bermudez
[2017-11-30 13:54] LABS: Thyroid Stimulating Hormone 4.91 uIU/mL (0.360-3.740)
--- NOTE | 2017-11-30 13:54 | ECHO ---
HEIGHT: 5 ft 10 in WEIGHT: 170 lb 0 oz DATE OF STUDY: 11/30/[address]: Mildred Roque MD 2-DIMENSIONAL: YES M.MODE: YES DOPPLER: YES COLOR FLOW: YES TDS: NO PORTABLE: YES DEFINITY: NO BUBBLE STUDY: NO DIAGNOSIS: ACUTE MYOCARDIAL INFARCTION CARDIAC HISTORY: CATHERIZATION: NO SURGERY: NO PROSTHETIC VALVE: NO PACEMAKER: NO MEASUREMENTS (cm) DIASTOLIC (NORMALS) SYSTOLIC (NORMALS) IVSd 0.9 (0.6-1.2) LA Diam 3.2 (1.9-4.0) LVEF 25% LVIDd 4.6 (3.5-5.7) LVIDs 4.1 (2.0-3.5) %FS 11% LVPWd 1.0 (0.6-1.2) Ao Diam 3.3 (2.0-3.7) 2 DIMENSIONAL ASSESSMENT: RIGHT ATRIUM: NORMAL LEFT ATRIUM: NORMAL RIGHT VENTRICLE: NORMAL LEFT VENTRICLE: NORMAL SIZE TRICUSPID VALVE: NORMAL MITRAL VALVE: NORMAL PULMONIC VALVE: NORMAL AORTIC VALVE: SCLEROSIS PERICARDIAL EFFUSION: NONE AORTIC ROOT: NORMAL LEFT VENTRICULAR WALL MOTION: SEVERE GLOBAL HYPOKINESIS. DOPPLER/COLOR FLOW: MILD MITRAL AND TRICUSPID REGURGITATION. COMMENTS: SEVERE GLOBAL HYPOKINESIS. EJECTION FRACTION 25%. MILD MITRAL AND TRICUSPID REGURGITATION. AORTIC SCLEROSIS. TECHNOLOGIST: WM SALDIVAR
[2017-11-30 13:56] LABS: Troponin I 6.6 ng/mL (0.0-0.045)
[2017-11-30 14:19] LABS: Potassium 4.4 mmol/L (3.5-5.1)
[2017-11-30] MEDS: ALBUTEROL 2.5 MG/3 ML NEB SOL NEB SCH ×2 (15:00→19:27)
[2017-11-30] MEDS: AMIODARONE HCL 450 MG in D5W 241 ML IV SCH (15:01)
[2017-11-30] MEDS ORDERED: HALOPERIDOL LACT 5 MG/ML INJ IV PRN (16:17)
[2017-11-30] MEDS: DOPAMINE/D5W 400 MG/250 ML BAG IV PRN (16:42)
--- NOTE | 2017-11-30 16:53 | P.HP ---
Certification for Inpatient Patient admitted to: Inpatient With expected LOS: >2 Midnights Patient will require the following post-hospital care: None Practitioner: I am a practitioner with admitting privileges, knowledge of patient current condition, hospital course, and medical plan of care. Services: Services provided to patient in accordance with Admission requirements found in Title 42 Section 412.3 of the Code of Federal Regulations Patient History Date of Service: 11/30/17 Primary Care Provider: None Reason for admission: Cardiopulmonary Arrest History of Present Illness: This is a 82-year-old male with significant past medical history of high blood pressure, diabetes, hyperlipidemia, COPD, former smoker, who presented to the ED complaining of having shortness of breath. Patient stated to the EMS that he has been having some shortness of breath for past 3 days. Family at bedside states that patient was having fever and chills last night. Took Advil and woke up this morning looking beard and dusky thus family called 911 for further treatment. When EMS arrived at the house patient was brought over to the ER on her outpatient did become more lethargic and somnolent. In the ER patient was found to have pulseless V-tach and thus was resuscitated with 2 rounds of shock with epinephrine. Patient was successfully resuscitated and was referred over for admission for further care. Allergies alprazolam [From Xanax] Allergy (Unverified 09/18/17 23:04) Unknown ziprasidone [From Geodon] Allergy (Unverified 09/18/17 23:04) Unknown Home Medications: Atenolol [Tenormin*] 50 mg PO BID 04/16/13 Budesonide/Formoterol Fumarate [Symbicort 160-4.5 Mcg Inhaler] 1 spray IH DAILY 04/16/13 Lisinopril [Prinivil*] 20 mg PO DAILY 04/16/13 Simvastatin [Zocor*] 40 mg PO DAILY 04/16/13 Temazepam [Restoril] 15 mg PO BEDTIME 04/16/13 Tiotropium Sabula [Spiriva] 1 spray IH DAILY 04/16/13 hydroCHLOROthiazide [Hydrochlorothiazide*] 12.5 mg PO DAILY 04/16/13 Allopurinol 300 mg PO DAILY 11/30/17 Pregabalin [Lyrica] 150 mg PO BID 11/30/17 - Past Medical/Surgical History Has patient received pneumonia vaccine in the past: Yes Diabetic: No -: COPD -: HTN -: History of Throat Cancer -: Hyperlipidemia -: Anxiety -: Hernia -: fistula surgery -: plastic artery insert left leg Psychosocial/ Personal History: . - Family History Family History: Reviewed- Non-Contributory - Family History Mother -: Cancer Notes: Leukemia - Social History Smoking Status: Former smoker Alcohol use: Yes CD- Drugs: No Caffeine use: Yes Place of Residence: Home Review of Systems 10-point ROS is otherwise unremarkable Physical Examination - Vital Signs Temperature: 96.1 F Blood Pressure: 88/57 Pulse: 56 Respirations: 18 Pulse Ox (%): 100 - Physical Exam General: Other (Intubated and sedated) HEENT: Atraumatic Neck: Supple, 2+ carotid pulse no bruit, No LAD, JVD distended Respiratory: Normal air movement, Crackles/rales, Expiratory wheezes, Inspiratory wheezes Cardiovascular: Normal S1 S2, Irregular heart rate/rhythm Gastrointestinal: Normal bowel sounds, Soft and benign, Non-distended, No tenderness Musculoskeletal: No tenderness Integumentary: No rashes Neurological: Other (Intubated and sedated) Lymphatics: No axilla or inguinal lymphadenopathy - Studies Laboratory Data (last 24 hrs) 11/30/17 08:45: PT 12.9 H, INR 1.09, APTT 29.6 11/30/17 08:45: WBC 19.2 H, Hgb 10.5 L, Hct 34.2 L, Plt Count 202 11/30/17 08:45: Sodium 145, Potassium 3.7, BUN 27 H, Creatinine 1.90 H, Glucose 300 H Microbiology Data (last 24 hrs): 11/30/17 08:40 Sputum Gram Stain - Final 11/30/17 08:45 Nasopharnyx Influenza Type A Antigen Screen - Final 11/30/17 08:45 Nasopharnyx Influenza Type B Antigen Screen - Final Assessment and Plan - Problems (Diagnosis) (1) Cardiopulmonary arrest with successful resuscitation Current Visit: Yes Status: Acute Plan: Cardiopulmonary Arrest with Successful Resuscitation. Most Likely multifactorial -S/P Intubation and Shock x 2 -initially with pulseless V-tach after shock patient was in VFib. -started on IV amiodarone -Pulmonology and Cardiology consulted. -ECHO and VQ scan pending as well -ABG and xray in AM -Pending lab -Was on Levophed for pressor support. Switched to Dopamine with Poor heart Compliance. (2) Septic shock Current Visit: Yes Status: Acute Plan: Sepsis with Shock -Lactic acid with 11.1 -Blood, urine and sputum culture pending -IV vanc and zosyn -Pressure support with IV dopamine (3) PNA (pneumonia) Current Visit: Yes Status: Acute Plan: Pt with H/o Fever, chills and cough -Xray with Opacity -Procal negative however PNA cannot be ruledout -Continue with IV abx -sputum culture pending (4) Elevated troponin Current Visit: Yes Status: Acute Plan: Elevated troponin along with CK MB. EKG with right bundle branch block along with atrial fibrillation with RVR initially and then to pulseless V-tach. -currently patient placed on weight based Lovenox. BB and JACK inhibitor on hold due to Low BP -cardiology consulted. -on IV dopamine for cardiogenic shock. -echocardiogram pending at this time however echo at bedside with poor compliance and poor ejection fraction -Patient may need CATH if no improvement (5) Acute renal failure Current Visit: Yes Status: Acute Plan: Acute renal failure most likely secondary to cardiopulmonary arrest and volume depletion -IV fluids on hold at this time due to poor EF and compliance on bedside echocardiogram -will monitor patient's kidney function closely. -will get nephrology if needed Qualifiers: Acute renal failure type: with acute tubular necrosis Qualified Code(s): N17.0 - Acute kidney failure with tubular necrosis (6) CHF (congestive heart failure) Current Visit: Yes Status: Acute Plan: Acute congestive heart failure. -IV dopamine at this time for hypotension -cardiology consulted. Pending recommendations at this time -will monitor closely -echo is pending Qualifiers: Heart failure type: unspecified Heart failure chronicity: acute Qualified Code(s): I50.9 - Heart failure, unspecified (7) COPD (chronic obstructive pulmonary disease) Current Visit: Yes Status: Chronic Plan: COPD with acute exacerbation most likely secondary to pneumonia versus cardiac etiology -DuoNeb, steroids, intubated at this time -pulmonology consulted. Pending recommendations Qualifiers: COPD type: COPD with acute exacerbation Qualified Code(s): J44.1 - Chronic obstructive pulmonary disease with (acute) exacerbation - Plan Patient will be admitted to the ICU for further care. Currently patient is status post cardiopulmonary arrest. Pulmonology and cardiology has been consulted on the case. Patient will be treated with IV amiodarone, dopamine, and antibiotics Discharge Plan: Other Plan to discharge in: Greater than 2 days - Advance Directives Does patient have a Living Will: Yes Does patient have a Durable POA for Healthcare: No - Code Status/Comfort Care Code Status Assessed: Yes Code Status: Full Code Critical Care: Yes
[2017-11-30 17:01] LABS: Albumin 2.3 g/dL (3.4-5.0); Bilirubin Total 0.9 mg/dL (0.2-1.0); Potassium 4.8 mmol/L (3.5-5.1); Protein, Total 5.7 g/dL (6.4-8.2)
[2017-11-30] MEDS: ENOXAPARIN 80 MG/0.8 ML SQ SCH (17:04)
[2017-11-30] MEDS: PIPER/TAZO/NS 3.375gm 3.375 GM/100 ML BAG IVPB SCH (17:04)
[2017-11-30 17:12] LABS: Urine Appearance TURBID; Urine Blood 2+ (NEG); Urine Color DK YELLOW; Urine Glucose TRACE (NEG); Urine Protein 2+ (NEG); Urine Specific Gravity 1.025 (1.005-1.030); Urine pH 5.5 (5.0-7.0)
[2017-11-30 17:20] LABS: Absolute Lymphocytes (CBC) 1.5 K/uL (0.7-4.9); Absolute Monocytes 0.8 K/uL (0.1-1.3); Absolute Neutrophil 19.7 K/uL (1.8-8.0); Basophils % 0.6 % (0-1.3); Eosinophils % 0.1 % (0-4.4); Hematocrit 36.4 % (39.6-49.0); Lymphocytes % 6.6 % (15.3-44.8); MCH 28.3 pg (27.0-35.0); MPV 10.6 fL (7.6-11.3); Monocytes % 3.6 % (3.3-12.3); RBC Red Blood Cell Count 4.05 M/uL (4.33-5.43)
[2017-11-30 17:33] LABS: Urine Bilirubin NEGATIVE (NEG); Urine Microscopic Reflex ORDER UMIC
[2017-11-30 17:34] LABS: Urine RBC >50 /HPF (NONE SEEN)
[2017-11-30 17:35] LABS: Urine Bacteria 20-50 /HPF (NONE SEEN); Urine Culture Reflex Order REFLEXED; Urine Mucus SLIGHT /HPF (NONE SEEN)
[2017-11-30] MEDS: FENTANYL CITR 100 MCG/2 ML IV PRN (17:35)
--- NOTE | 2017-11-30 17:59 | P.CNS ---
Date of Consult: 11/30/17 Primary Care Provider: None Chief Complaint: Cardiopulmonary Arrest History of Present Illness: Patient is 82 years of age admitted from the emergency room with shortness of breath for the past 3 days also has some fever and chills he was lethargic somnolent intubated transferred to the ICU currently he is on dopamine on a ventilator very agitated. Patient is responsive to open his eyes Allergies alprazolam [From Xanax] Allergy (Unverified 09/18/17 23:04) Unknown ziprasidone [From Geodon] Allergy (Unverified 09/18/17 23:04) Unknown Home Medications: Atenolol [Tenormin*] 50 mg PO BID 04/16/13 Budesonide/Formoterol Fumarate [Symbicort 160-4.5 Mcg Inhaler] 1 spray IH DAILY 04/16/13 Lisinopril [Prinivil*] 20 mg PO DAILY 04/16/13 Simvastatin [Zocor*] 40 mg PO DAILY 04/16/13 Temazepam [Restoril] 15 mg PO BEDTIME 04/16/13 Tiotropium [place] [Spiriva] 1 spray IH DAILY 04/16/13 hydroCHLOROthiazide [Hydrochlorothiazide*] 12.5 mg PO DAILY 04/16/13 Allopurinol 300 mg PO DAILY 11/30/17 Pregabalin [Lyrica] 150 mg PO BID 11/30/17 - Past Medical/Surgical History Diabetic: No -: COPD -: HTN -: History of Throat Cancer -: Hyperlipidemia -: Anxiety -: Hernia -: fistula surgery -: plastic artery insert left leg Psychosocial/ Personal History: . - Family History Mother Medical History: Cancer Notes: Leukemia - Social History Smoking Status: Former smoker Alcohol use: Yes CD- Drugs: No Caffeine use: Yes Place of Residence: Home Review of Systems is unable to be obtained Physical Examination Temp Pulse Resp BP Pulse Ox 96.1 F L 74 18 107/47 L 99 11/30/17 17:00 11/30/17 17:30 11/30/17 17:30 11/30/17 17:30 11/30/17 17:30 General: Other (Very agitated) Neck: Supple Respiratory: Expiratory wheezes, Rhonchi/gurgles Cardiovascular: No edema, Normal S1 S2 Gastrointestinal: Normal bowel sounds, Soft and benign Musculoskeletal: No clubbing, No contractures Laboratory Data (last 24 hrs) 11/30/17 08:45: PT 12.9 H, INR 1.09, APTT 29.6 11/30/17 08:45: WBC 19.2 H, Hgb 10.5 L, Hct 34.2 L, Plt Count 202 11/30/17 08:45: Sodium 145, Potassium 3.7, BUN 27 H, Creatinine 1.90 H, Glucose 300 H - Problems (1) Respiratory failure Current Visit: Yes Status: Acute Plan: Patient is 82 years of age with a history of COPD admitted with respiratory failure patient was hypoxic hypercapnic worsening renal function white count elevated chest x-ray abnormal he may have a right lower lobe infiltrate with some interstitial changes echocardiogram shows severe global hypokinesis patient 's troponin is also elevated is quite possible that he had a coronary event or possibly sepsis induced hypokinesis hand he may have an exacerbation of his COPD that precipitated all these events due to hypoxemia plan is to 1st wean him off the ventilator cautious fluid boluses he is on broad-spectrum antibiotics dopamine patient is currently on 40% O2 pro calcitonin level is negative Qualifiers: Chronicity: acute on chronic
[2017-11-30] MEDS ORDERED: NA CHLORIDE 0.9% 250 ML ONE (18:21)
[2017-11-30] MEDS: METHYLPREDNISOLONE 40 MG INJ IV SCH (18:26)
[2017-11-30 19:33] LABS: Anisocytosis 3+; Blood Morphology Comment NOTED (NOT SEEN); Elliptocytes 1+; Platelet Estimate ADEQ; Platelets, Giant PRESENT; Polychromasia 1+
[2017-11-30] MEDS: ATORVASTATIN 20 MG TAB PO SCH (21:16)
[2017-11-30] MEDS: FAMOTIDINE 20 MG/2 ML VIAL IV SCH (21:17)
[2017-11-30] MEDS ORDERED: NA CHLORIDE 0.9% 250 ML IV ONE (23:52)
[2017-12-01] MEDS: LORazepam 2 MG/ML VIAL IV PRN ×4 (00:50→23:14)
[2017-12-01] MEDS: METHYLPREDNISOLONE 40 MG INJ IV SCH ×3 (00:50→17:16)
[2017-12-01] MEDS: FENTANYL CITR 100 MCG/2 ML IV PRN ×5 (00:51→23:30)
[2017-12-01] MEDS: PIPER/TAZO/NS 3.375gm 3.375 GM/100 ML BAG IVPB SCH ×3 (01:07→17:16)
[2017-12-01] MEDS: IPRATROPIUM BROM 0.5MG/2.5ML NEB SCH ×4 (01:44→19:30)
[2017-12-01] MEDS: ALBUTEROL 2.5 MG/3 ML NEB SOL NEB SCH ×4 (01:44→19:30)
[2017-12-01] MEDS: DOPAMINE/D5W 400 MG/250 ML BAG IV PRN (04:33)
[2017-12-01] MEDS: AMIODARONE HCL 450 MG in D5W 241 ML IV SCH ×2 (04:33→23:14)
[2017-12-01] MEDS: ENOXAPARIN 80 MG/0.8 ML SQ SCH (05:21)
[2017-12-01 06:12] LABS: Arterial Blood Carboxyhemoglob 1.4 % (0-1.5); Blood Gas Oxyhemoglobin 92.6 % (94-97); Blood O2 Saturation 94.2 % (92-98.5)
[2017-12-01 06:24] LABS: Protime INR 1.23
[2017-12-01 06:35] LABS: Absolute Monocytes 0.2 K/uL (0.1-1.3); Basophils % 0.4 % (0-1.3); Hematocrit 33.8 % (39.6-49.0); Lymphocytes % 9.1 % (15.3-44.8); MCH 29.1 pg (27.0-35.0); MCV 89.7 fL (80-100); MPV 10.4 fL (7.6-11.3); Monocytes % 1.5 % (3.3-12.3); RBC Red Blood Cell Count 3.77 M/uL (4.33-5.43)
[2017-12-01 06:55] LABS: Albumin 2.4 g/dL (3.4-5.0); Bilirubin Total 0.6 mg/dL (0.2-1.0); Magnesium 2.7 mg/dL (1.8-2.4); Potassium 3.7 mmol/L (3.5-5.1)
[2017-12-01 06:56] LABS: CKMB Creatine Kinase MB 75.6 ng/mL (0.3-3.6)
[2017-12-01] MEDS: INSULIN -REGULAR HUMAN 50 UNIT/0.5 ML ML SQ SCH ×4 (07:30→20:46)
--- NOTE | 2017-12-01 08:04 | RAD REPORT ---
EXAM DESCRIPTION: RAD - Chest Single View - 12/01/2017 6:11 am CLINICAL HISTORY: Acute respiratory distress, intubation COMPARISON: November 30 TECHNIQUE: AP portable chest image was obtained 0555 hours . FINDINGS: Interstitial and patchy alveolar opacities throughout the lung dutta have improved from t he prior day study. No progressive lung parenchymal process. No pneumothorax or progressive pleural f luid collection. ET tube remains in good position. Nasogastric tube extends below the diaphragm off the field of view. Heart and vasculature are normal. No acute bony abnormality seen. No acute aortic findings suspected . IMPRESSION: ETT and NG tube in good position. Significant partial clearing of the interstitial and alveolar opacities seen on the prior day study.
[2017-12-01] MEDS: FAMOTIDINE 20 MG/2 ML VIAL IV SCH ×2 (08:24→20:46)
[2017-12-01] MEDS ORDERED: HOME MED 1 EA UNK (Simvastatin [Zocor*] 40 MG) PO SCH (09:00)
[2017-12-01] MEDS: FUROSEMIDE 20 MG/ 2ML VIAL IV SCH (11:02)
--- NOTE | 2017-12-01 11:22 | P.PN ---
Subjective Date of Service: 12/01/17 Primary Care Provider: None Chief Complaint: Respiratory failure Subjective: Improving (Patient is improving he is alert responsive cooperative wants to be extubated hemodynamically stable) Review of Systems is unable to be obtained Physical Examination - Vital Signs Temperature: 97.1 F Blood Pressure: 95/50 Pulse: 56 Respirations: 18 Pulse Ox (%): 95 - Physical Exam General: Alert, Cooperative Respiratory: Clear to auscultation bilaterally Cardiovascular: No edema - Studies Microbiology Data (last 24 hrs): 11/30/17 08:40 Sputum Gram Stain - Final 11/30/17 08:45 Nasopharnyx Influenza Type A Antigen Screen - Final 11/30/17 08:45 Nasopharnyx Influenza Type B Antigen Screen - Final Assessment & Plan - Problems (Diagnosis) (1) Respiratory failure Current Visit: Yes Status: Acute Plan: Patient admitted with respiratory failure I suspect that he was hypoxic from COPD exacerbation patient is a bump abnormal liver function tests elevated CK and troponin possibly underlying coronary event he is fully anti coagulated on amiodarone currently on 1 Scott dopamine will plan to wean and extubate chest x-ray shows significant clearing blood cultures negative can Dc antibiotics Qualifiers: Chronicity: acute on chronic
--- NOTE | 2017-12-01 12:27 | EKG ---
Test Date: 2017-11-30 Test Time: 15:13:43 [employer] Clerk: GÓMEZ MEASUREMENT RESULTS: Intervals: Rate: 59 CA: 128 QRSD: 140 QT: 540 QTc: 534 [place]: P: 254 CA: 128 QRS: 71 T: -82 INTERPRETIVE STATEMENTS: Unusual P axis and short CA, probable junctional rhythm Nonspecific intraventricular block Cannot rule out Septal infarct, age undetermined T wave abnormality, consider inferior ischemia Abnormal ECG Compared to ECG 11/30/2017 10:02:49 Myocardial infarct finding now present T-wave abnormality now present Possible ischemia now present Sinus rhythm no longer present ST (T wave) deviation no longer present Prolonged QT interval no longer present Electronically Signed On 12-01-17 12:25:50 CDT by Orion Bermudez
--- NOTE | 2017-12-01 12:50 | P.PN ---
Subjective Date of Service: 12/01/17 Primary Care Provider: None Chief Complaint: Respiratory failure Patient seen and examined at bedside with RN. Chart reviewed. Case discussed with cardiology, pulmonology, nursing staff at bedside. Currently patient is doing well. He is alert and awake and on spontaneous breathing trial since this morning. Is doing well overall. Plan is to extubated today per pulmonology. Patient is also currently off of propofol and dopamine. Blood pressure and heart rate has been stable since then as well. Review of Systems 10-point ROS is otherwise unremarkable Physical Examination - Vital Signs Temperature: 97.1 F Blood Pressure: 97/47 Pulse: 60 Respirations: 13 Pulse Ox (%): 96 - Physical Exam General: Alert, Mild distress, Other (Intubated) HEENT: Atraumatic, PERRLA, EOMI Neck: Supple, JVD distended Respiratory: Normal air movement, Crackles/rales, Expiratory wheezes, Inspiratory wheezes Cardiovascular: Regular rate/rhythm, Normal S1 S2 Gastrointestinal: Normal bowel sounds, No tenderness Musculoskeletal: No tenderness Integumentary: No rashes Neurological: Normal tone, Normal affect Lymphatics: No axilla or inguinal lymphadenopathy - Studies Microbiology Data (last 24 hrs): 11/30/17 08:40 Sputum Gram Stain - Final 11/30/17 08:45 Nasopharnyx Influenza Type A Antigen Screen - Final 11/30/17 08:45 Nasopharnyx Influenza Type B Antigen Screen - Final Medications List Reviewed: Yes Assessment And Plan - Current Problems (Diagnosis) (1) Cardiopulmonary arrest with successful resuscitation Current Visit: Yes Status: Acute Plan: Cardiopulmonary Arrest with Successful Resuscitation. Most Likely multifactorial -S/P Intubation and Shock x 2 in the ER -initially with pulseless V-tach after shock patient was in VFib. -started on IV amiodarone and dopamin. Weaned off the Dopamine now -Pulmonology and Cardiology consulted. -Doing well overall. Successful Resuscitation (2) Septic shock Current Visit: Yes Status: Acute Plan: Sepsis with Shock -Lactic acid with 11.1 trending down now -Blood, urine and sputum culture pending -IV vanc and zosyn. Will conitnue for now till culture negative -Weaned off Levophed and Dopamine for now (3) PNA (pneumonia) Current Visit: Yes Status: Acute Plan: Pt with H/o Fever, chills and cough -Xray with Opacity and Edema -Procal negative however PNA cannot be ruled out -Continue with IV abx for another 24 hrs. -sputum culture pending (4) Elevated troponin Current Visit: Yes Status: Acute Plan: Elevated troponin along with CK MB. EKG with right bundle branch block along with atrial fibrillation with RVR initially and then to pulseless V-tach. -currently patient placed on weight based Lovenox. BB and JACK inhibitor on hold due to Low BP -cardiology consulted. Appreciate Reccs -Wean off the IV dopamine for cardiogenic shock. -echocardiogram with EF of 25% and Poor compliance -Elevated Troponin and CKMB -Patient may need CATH if no improvement (5) Acute renal failure Current Visit: Yes Status: Acute Plan: Acute renal failure most likely secondary to cardiopulmonary arrest and volume depletion -IV fluids on hold at this time due to poor EF and compliance on echocardiogram -will monitor patient's kidney function closely. -will get nephrology if needed Qualifiers: Acute renal failure type: with acute tubular necrosis Qualified Code(s): N17.0 - Acute kidney failure with tubular necrosis (6) CHF (congestive heart failure) Current Visit: Yes Status: Acute Plan: Acute congestive heart failure. -Weaned off IV dopamine. Started on IV lasix with Stable BP -cardiology consulted. Reccs Appreciated -ECHO with EF with 25% and Poor Complaince Qualifiers: Heart failure type: unspecified Heart failure chronicity: acute Qualified Code(s): I50.9 - Heart failure, unspecified (7) COPD (chronic obstructive pulmonary disease) Current Visit: Yes Status: Chronic Plan: COPD with acute exacerbation most likely secondary to pneumonia versus cardiac etiology -DuoNeb, steroids, intubated at this time -Wean off intubation as tolerated -Currently on SBT -pulmonology consulted. Reccomendation at this time Qualifiers: COPD type: COPD with acute exacerbation Qualified Code(s): J44.1 - Chronic obstructive pulmonary disease with (acute) exacerbation Discharge Plan: Other Plan to discharge in: Greater than 2 days - Code Status/Comfort Care Code Status Assessed: Yes Critical Care: Yes
[2017-12-01] MEDS: HYDROCODONE/APAP 10/325 TAB PO PRN (14:46)
[2017-12-01] MEDS: LIDOCAINE 5% PATCH TOP SCH (14:59)
[2017-12-01] MEDS: ATORVASTATIN 20 MG TAB PO SCH (21:00)
[2017-12-01] MEDS ORDERED: VANCOMYCIN 1.25 GM in NA CHLORIDE 0.9% 250 ML IVPB SCH (21:00)
[2017-12-02] MEDS: METHYLPREDNISOLONE 40 MG INJ IV SCH ×3 (01:11→17:14)
[2017-12-02] MEDS: PIPER/TAZO/NS 3.375gm 3.375 GM/100 ML BAG IVPB SCH ×3 (01:13→17:14)
[2017-12-02] MEDS: IPRATROPIUM BROM 0.5MG/2.5ML NEB SCH ×3 (02:10→14:00)
[2017-12-02] MEDS: ALBUTEROL 2.5 MG/3 ML NEB SOL NEB SCH ×3 (02:10→14:00)
[2017-12-02] MEDS ORDERED: HYDROMORPHONE HCL 1 MG/ML INJ IV STA (02:11)
[2017-12-02] MEDS ORDERED: HYDROMORPHONE HCL 1 MG/ML INJ ONE (02:22)
[2017-12-02 05:37] LABS: Protime INR 1.21
[2017-12-02 05:39] LABS: Absolute Lymphocytes (CBC) 0.6 K/uL (0.7-4.9); Absolute Monocytes 0.6 K/uL (0.1-1.3); Absolute Neutrophil 18.5 K/uL (1.8-8.0); Basophils % 0.1 % (0-1.3); Hematocrit 31.2 % (39.6-49.0); Lymphocytes % 3.1 % (15.3-44.8); MCH 28.9 pg (27.0-35.0); MCV 90.5 fL (80-100); MPV 10.3 fL (7.6-11.3); Monocytes % 3.3 % (3.3-12.3); RBC Red Blood Cell Count 3.45 M/uL (4.33-5.43)
[2017-12-02] MEDS: ENOXAPARIN 80 MG/0.8 ML SQ SCH (05:47)
[2017-12-02 06:00] LABS: Albumin 2.8 g/dL (3.4-5.0); Bilirubin Total 0.7 mg/dL (0.2-1.0); CKMB Creatine Kinase MB 31.3 ng/mL (0.3-3.6); Magnesium 2.5 mg/dL (1.8-2.4); Phosphorus 4.5 mg/dL (2.5-4.9); Potassium 3.6 mmol/L (3.5-5.1); Protein, Total 6.4 g/dL (6.4-8.2)
[2017-12-02 06:19] LABS: Arterial Blood Carboxyhemoglob 1.5 % (0-1.5); Blood Gas Oxyhemoglobin 90.5 % (94-97); Blood O2 Saturation 92.3 % (92-98.5)
[2017-12-02 06:33] LABS: Anisocytosis SLIGHT; Blood Morphology Comment NOTED (NOT SEEN); Platelet Estimate ADEQ
--- NOTE | 2017-12-02 06:52 | CON ---
Date of Consultation: 11/30/2017 Reason For Consultation: Cardiac arrest and ventricular tachycardia. History Of Present Illness: Mr. Marie is an 82-year-old white male, came in with CPR in progress, ventricular tachycardia, required intubation, respiratory failure. By the time I saw him, he was al ready in normal rhythm. Had been resuscitated. He was on IV amiodarone. He was oxygenating adequat isabel on mechanical ventilation. No history of chest pain reported. No previous cardiac history. His troponin was 0.8. His rapid troponin was 17.7. His BNP was 1341. Echocardiogram is pending. Past Medical History: Includes gout, hypertension, COPD, and dyslipidemia. Allergies: TO XANAX AND ZIPRASIDONE. Review of Systems: Negative. Social History: Negative. Family History: Negative. Medications: At home include allopurinol, hydrochlorothiazide, Tenormin, inhalers, lisinopril, Zocor . Physical Examination: General: He is on mechanical ventilation, adequate saturation, sinus rhythm. Occasional PVC. Afebr ile, normotensive. HEENT: Negative. Neck: Supple without any lymphadenopathy, thyromegaly, or bruit, but I thought he had JVD. Chest: Revealed crackles and wheezing throughout. Cardiac: Revealed regular rhythm and rate. No murmurs, gallops, or rubs. Abdomen: Benign. Extremities: Revealed no clubbing, cyanosis. He had 1+ edema. Diagnostic Data: His glucose was 317. EKG showed nonspecific ST-T wave changes. Chest x-ray shows CHF. Creatinine was 2.0. His white count was 22,000. Troponins were mentioned earlier. BNP is 134 1. His pO2 was 104, pCO2 56, pH is 7.33. Impression And Plan: Ventricular tachycardia and overall presentation are consistent with congestive heart failure and probably coronary artery disease. I agree with the echocardiogram which is being done today. Dr. Patel has been consulted. I am concerned about his elevated white count and crea tinine and we will just have to follow these. He is on antibiotics. I would continue the IV amiodar one right now. We will see what the echocardiogram shows before making further decisions. Hopefully , Mr. Marie will recover from this event. He will need a heart catheterization eventually. His b lood pressure right now is fairly well controlled. He has a history of dyslipidemia for which he marie es Zocor. He may have new onset diabetes as well. I will continue to follow Mr. Marie. SHERI/EDVIN Voice ID: [id number] Report ID: [id number]
[2017-12-02] MEDS: INSULIN -REGULAR HUMAN 50 UNIT/0.5 ML ML SQ SCH ×4 (07:30→20:00)
[2017-12-02] MEDS: FENTANYL CITR 100 MCG/2 ML IV PRN ×3 (07:38→19:58)
--- NOTE | 2017-12-02 07:56 | RAD REPORT ---
EXAM DESCRIPTION: [place] Single View12/02/2017 6:25 am CLINICAL HISTORY: Shortness of breath COMPARISON: 12/01/2017 FINDINGS: Mild to moderate bilateral social opacities are unchanged. Tubes have been removed since the prior exam The heart is mildly to moderately enlarged
[2017-12-02] MEDS: LIDOCAINE 5% PATCH TOP SCH (09:10)
[2017-12-02] MEDS: FAMOTIDINE 20 MG/2 ML VIAL IV SCH ×2 (09:10→20:00)
[2017-12-02] MEDS: FUROSEMIDE 20 MG/ 2ML VIAL IV SCH (09:10)
[2017-12-02] MEDS: LORazepam 2 MG/ML VIAL IV PRN (10:22)
--- NOTE | 2017-12-02 12:47 | P.PN ---
Subjective Date of Service: 12/02/17 Primary Care Provider: None Chief Complaint: Respiratory failure Patient seen and examined at bedside with RN. Chart reviewed. Case discussed with cardiology, pulmonology, nursing staff at bedside. Physical Examination - Vital Signs Temperature: 97.7 F Blood Pressure: 101/59 Pulse: 96 Respirations: 15 Pulse Ox (%): 92 - Studies Microbiology Data (last 24 hrs): 11/30/17 08:40 Sputum Gram Stain - Final 11/30/17 08:40 Sputum Culture & Sensitivity - Final Medications List Reviewed: Yes Assessment And Plan - Current Problems (Diagnosis) (1) Cardiopulmonary arrest with successful resuscitation Current Visit: Yes Status: Acute Plan: Cardiopulmonary Arrest with Successful Resuscitation. Most Likely multifactorial -S/P Intubation and Shock x 2 in the ER -initially with pulseless V-tach after shock patient was in VFib. -started on IV amiodarone and dopamin. Weaned off the Dopamine now -Pulmonology and Cardiology consulted. -Doing well overall. Successful Resuscitation (2) Septic shock Current Visit: Yes Status: Acute Plan: Sepsis with Shock -Lactic acid with 11.1 trending down now -Blood, urine and sputum culture pending -IV vanc and zosyn. Will conitnue for now till culture negative -Weaned off Levophed and Dopamine for now (3) PNA (pneumonia) Current Visit: Yes Status: Acute Plan: Pt with H/o Fever, chills and cough -Xray with Opacity and Edema -Procal negative however PNA cannot be ruled out -Continue with IV abx for another 24 hrs. -sputum culture pending (4) Elevated troponin Current Visit: Yes Status: Acute Plan: Elevated troponin along with CK MB. EKG with right bundle branch block along with atrial fibrillation with RVR initially and then to pulseless V-tach. -currently patient placed on weight based Lovenox. BB and JACK inhibitor on hold due to Low BP -cardiology consulted. Appreciate Reccs -Wean off the IV dopamine for cardiogenic shock. -echocardiogram with EF of 25% and Poor compliance -Elevated Troponin and CKMB -Patient may need CATH if no improvement (5) Acute renal failure Current Visit: Yes Status: Acute Plan: Acute renal failure most likely secondary to cardiopulmonary arrest and volume depletion -IV fluids on hold at this time due to poor EF and compliance on echocardiogram -will monitor patient's kidney function closely. -will get nephrology if needed Qualifiers: Acute renal failure type: with acute tubular necrosis Qualified Code(s): N17.0 - Acute kidney failure with tubular necrosis (6) CHF (congestive heart failure) Current Visit: Yes Status: Acute Plan: Acute congestive heart failure. -Weaned off IV dopamine. Started on IV lasix with Stable BP -cardiology consulted. Reccs Appreciated -ECHO with EF with 25% and Poor Complaince Qualifiers: Heart failure type: unspecified Heart failure chronicity: acute Qualified Code(s): I50.9 - Heart failure, unspecified (7) COPD (chronic obstructive pulmonary disease) Current Visit: Yes Status: Chronic Plan: COPD with acute exacerbation most likely secondary to pneumonia versus cardiac etiology -DuoNeb, steroids, intubated at this time -Wean off intubation as tolerated -Currently on SBT -pulmonology consulted. Reccomendation at this time Qualifiers: COPD type: COPD with acute exacerbation Qualified Code(s): J44.1 - Chronic obstructive pulmonary disease with (acute) exacerbation - Plan Patient will be admitted to the ICU for further care. Currently patient is status post cardiopulmonary arrest. Pulmonology and cardiology has been consulted on the case. Patient will be treated with IV amiodarone, dopamine, and antibiotics
--- NOTE | 2017-12-02 14:18 | RAD REPORT ---
EXAM DESCRIPTION: CT - Thorax Wo Con - 12/02/2017 1:54 pm CLINICAL HISTORY: Respiratory distress, respiratory failure COMPARISON: Portable chest December 02, CT chest April 2013 TECHNIQUE: Axial 5 mm thick images of the chest were obtained without IV contrast. All CT scans are performed using dose optimization technique as appropriate and may include automated exposure control or mA/KV adjustment according to patient size. FINDINGS: Motion degradation is present. Interstitial markings are prominent. Posterior lower lobe p artial atelectasis noted. Small pleural effusions are present. Minimal infiltrate within the atelecta tic lung is not excluded. No masslike consolidation. There are no air bronchograms seen. No pleural b ased mass. No pneumothorax. No abnormal mediastinal or hilar masses or lymphadenopathy seen. No gross aortic or pulmonary artery finding suspected. Assessment is limited in the absence of IV contrast. Cardiomegaly present without pericardial thickening or effusion. No chest wall mass or abnormal axillary lymphadenopathy. IMPRESSION: Minimal bilateral pleural effusions with posterior lung base atelectasis. Minimal infilt rate within the atelectatic lung not excluded. No large area of consolidation. Cardiomegaly and prominent interstitial markings supporting a mild CHF versus volume overload pattern .
[2017-12-02] MEDS: AMIODARONE HCL 450 MG in D5W 241 ML IV SCH ×2 (14:22→22:53)
[2017-12-02] MEDS ORDERED: IPRATROPIUM BROM 0.5MG/2.5ML NEB PRN (15:03)
[2017-12-02] MEDS ORDERED: ALBUTEROL 2.5 MG/3 ML NEB SOL NEB PRN (15:03)
--- NOTE | 2017-12-02 15:08 | P.PN ---
Subjective Date of Service: 12/02/17 Primary Care Provider: None Chief Complaint: Respiratory failure Patient seen and examined at bedside with RN. Chart reviewed. Case discussed with cardiology, pulmonology, nursing staff at bedside. Patient agitated overnight. This morning continues to be agitated as well. Currently status post Ativan has been resting well overall. Review of Systems 10-point ROS is otherwise unremarkable Physical Examination - Vital Signs Temperature: 97.7 F Blood Pressure: 135/82 Pulse: 86 Respirations: 20 Pulse Ox (%): 94 - Physical Exam General: Mild distress, Confused HEENT: Atraumatic, PERRLA, EOMI Neck: Supple, JVD not distended Respiratory: Clear to auscultation bilaterally, Normal air movement Cardiovascular: Regular rate/rhythm, Normal S1 S2, Irregular heart rate/rhythm Gastrointestinal: Normal bowel sounds, No tenderness Musculoskeletal: No tenderness Integumentary: No rashes Neurological: Normal tone, Normal affect Lymphatics: No axilla or inguinal lymphadenopathy - Studies Microbiology Data (last 24 hrs): 11/30/17 08:40 Sputum Gram Stain - Final 11/30/17 08:40 Sputum Culture & Sensitivity - Final Medications List Reviewed: Yes Assessment And Plan - Current Problems (Diagnosis) (1) Cardiopulmonary arrest with successful resuscitation Current Visit: Yes Status: Acute Plan: Cardiopulmonary Arrest with Successful Resuscitation. Most Likely multifactorial -S/P Intubation and Shock x 2 in the ER -initially with pulseless V-tach after shock patient was in VFib. -started on IV amiodarone and dopamine. Weaned off the Dopamine now -Pulmonology and Cardiology consulted. -Doing well overall. Successful Resuscitation (2) Altered mental status Current Visit: Yes Status: Acute Plan: AMS with Agitation -Head CT negative -MRI Pending -negative for alcohol abuse. past use -Maybe toxic encephalopathy vs brain injury during Cardiopulmonary arrest -Ativan and Haldol PRN Qualifiers: Altered mental status type: disorientation Qualified Code(s): R41.0 - Disorientation, unspecified (3) Septic shock Current Visit: Yes Status: Acute Plan: Sepsis with Shock. Improved now -Lactic acid with 11.1 trending down now -Blood, urine and sputum culture pending -IV vanc and zosyn. Will conitnue for now till culture negative -Weaned off Levophed and Dopamine for now (4) PNA (pneumonia) Current Visit: Yes Status: Acute Plan: Pt with H/o Fever, chills and cough -Xray with Opacity and Edema -Procal negative however PNA cannot be ruled out -Continue with IV abx -sputum culture pending (5) Elevated troponin Current Visit: Yes Status: Acute Plan: Elevated troponin along with CK MB. EKG with right bundle branch block along with atrial fibrillation with RVR initially and then to pulseless V-tach. -currently patient placed on weight based Lovenox. Will restart BB and JACK inhibitor once BP stable -cardiology consulted. Appreciate Reccs -Weaned off the IV dopamine for cardiogenic shock. -echocardiogram with EF of 25% and Poor compliance -Elevated Troponin and CKMB -Patient may need CATH in future (6) Acute renal failure Current Visit: Yes Status: Acute Plan: Acute renal failure most likely secondary to cardiopulmonary arrest and volume depletion -IV fluids on hold at this time due to poor EF and compliance on echocardiogram -will monitor patient's kidney function closely. -will get nephrology if needed Qualifiers: Acute renal failure type: with acute tubular necrosis Qualified Code(s): N17.0 - Acute kidney failure with tubular necrosis (7) CHF (congestive heart failure) Current Visit: Yes Status: Acute Plan: Acute congestive heart failure. -Weaned off IV dopamine. Started on IV lasix with Stable BP -cardiology consulted. Reccs Appreciated -ECHO with EF with 25% and Poor Complaince Qualifiers: Heart failure type: unspecified Heart failure chronicity: acute Qualified Code(s): I50.9 - Heart failure, unspecified (8) COPD (chronic obstructive pulmonary disease) Current Visit: Yes Status: Chronic Plan: COPD with acute exacerbation most likely secondary to pneumonia versus cardiac etiology -DuoNeb, steroids,NC at this time -pulmonology consulted. Reccomendation at this time Qualifiers: COPD type: COPD with acute exacerbation Qualified Code(s): J44.1 - Chronic obstructive pulmonary disease with (acute) exacerbation - Plan Patient will be admitted to the ICU for further care. Currently patient is status post cardiopulmonary arrest. Pulmonology and cardiology has been consulted on the case. Patient will be treated with IV amiodarone, and antibiotics. making improvement but continues to be Alerted
[2017-12-02] MEDS ORDERED: MAGNESIUM SULFATE 1 gm IVPB 1 GM/100 ML BAG IV ONE (15:52)
[2017-12-02] MEDS ORDERED: KCL 20 MEQ/100 mL IVPB 20 MEQ/100 ML BAG IV SCH (16:00)
[2017-12-02] MEDS: CARVEDILOL 3.125 MG TAB PO SCH (17:14)
[2017-12-02] MEDS: HALOPERIDOL LACT 5 MG/ML INJ IV PRN ×2 (17:14→21:16)
[2017-12-02] MEDS: ATORVASTATIN 20 MG TAB PO SCH (20:00)
[2017-12-03] MEDS: PIPER/TAZO/NS 3.375gm 3.375 GM/100 ML BAG IVPB SCH (01:12)
[2017-12-03] MEDS: METHYLPREDNISOLONE 40 MG INJ IV SCH (01:12)
[2017-12-03] MEDS: HALOPERIDOL LACT 5 MG/ML INJ IV PRN ×2 (02:15→11:20)
--- NOTE | 2017-12-03 02:26 | PN ---
Date of Progress Note: 12/02/2017 Mr. Marie was admitted with ventricular tachycardia and cardiac arrest on 11/30/2017. On 12/02/19 18, ejection fraction was noted to be 26%, which is new onset for him. He was extubated. He remains extubated, oxygenating well. Mental status is still on the confused side. He had more ventricular tachycardia today with 31 beats without any hemodynamic compromise. He is off pressors. I am going to increase his amiodarone drip. I am going to start him on carvedilol 3.125 mg 1 p.o. b.i.d. I daljit l give him some potassium supplement for hypokalemia and give him 1 g of magnesium. We will continue to follow him. SHERI/EDVIN Voice ID: [id number] Report ID: [id number]
--- NOTE | 2017-12-03 02:26 | PN ---
Date of Progress Note: 12/01/2017 Mr. Marie was admitted on 11/30/2017 following CPR and shock for ventricular tachycardia and cardi ac arrest. He remains intubated this morning, but there is plan to extubate him. He seems to be tiki rt and oriented. He remains on IV amiodarone. Has not had any further ventricular tachycardia. Ech ocardiogram, however, that was done showed an ejection fraction of 26%. We will see how Mr. Marie does over the next few days after extubation, but if he shows improvement in his renal function and mental status after his white count is improved, we will consider doing a heart catheterization on nm m. SHERI/EDVIN Voice ID: [id number] Report ID: [id number]
[2017-12-03] MEDS: FENTANYL CITR 100 MCG/2 ML IV PRN ×2 (04:27→14:44)
[2017-12-03 05:57] LABS: Absolute Lymphocytes (CBC) 0.5 K/uL (0.7-4.9); Absolute Monocytes 0.6 K/uL (0.1-1.3); Absolute Neutrophil 10.8 K/uL (1.8-8.0); Basophils % 0.1 % (0-1.3); Hematocrit 28.2 % (39.6-49.0); Lymphocytes % 4.2 % (15.3-44.8); MCH 28.7 pg (27.0-35.0); MCV 88.5 fL (80-100); MPV 10.8 fL (7.6-11.3); Monocytes % 4.6 % (3.3-12.3); RBC Red Blood Cell Count 3.19 M/uL (4.33-5.43)
[2017-12-03 06:00] LABS: Protime INR 1.18
[2017-12-03] MEDS: CARVEDILOL 3.125 MG TAB PO SCH ×2 (06:00→17:56)
[2017-12-03 06:28] LABS: Albumin 2.7 g/dL (3.4-5.0); Magnesium 2.6 mg/dL (1.8-2.4); Phosphorus 3.3 mg/dL (2.5-4.9); Potassium 3.5 mmol/L (3.5-5.1); Protein, Total 5.9 g/dL (6.4-8.2)
[2017-12-03 06:30] LABS: CKMB Creatine Kinase MB 18.1 ng/mL (0.3-3.6)
[2017-12-03] MEDS: ENOXAPARIN 80 MG/0.8 ML SQ SCH (07:08)
[2017-12-03] MEDS: INSULIN -REGULAR HUMAN 50 UNIT/0.5 ML ML SQ SCH ×3 (07:30→16:30)
[2017-12-03] MEDS: AMIODARONE HCL 450 MG in D5W 241 ML IV SCH ×2 (08:00→17:04)
--- NOTE | 2017-12-03 08:35 | P.PN ---
Subjective Date of Service: 12/03/17 Primary Care Provider: None Chief Complaint: Delirium Patient was extubated is currently agitated delirious combative oriented to person Review of Systems is unable to be obtained Physical Examination - Vital Signs Temperature: 97.8 F Blood Pressure: 150/72 Pulse: 75 Respirations: 22 Pulse Ox (%): 90 - Physical Exam General: Moderate distress, Delirious Respiratory: Clear to auscultation bilaterally, Diminished Cardiovascular: No edema, Regular rate/rhythm - Studies Microbiology Data (last 24 hrs): 11/30/17 08:40 Sputum Gram Stain - Final 11/30/17 08:40 Sputum Culture & Sensitivity - Final Medications List Reviewed: Yes Assessment & Plan - Problems (Diagnosis) (1) Respiratory failure Current Visit: Yes Status: Resolved Plan: Patient admitted with respiratory failure I suspect that he was hypoxic from COPD exacerbation patient is a bump abnormal liver function tests elevated CK and troponin possibly underlying coronary event he is fully anti coagulated on amiodarone currently on 1 Scott dopamine will plan to wean and extubate chest x-ray shows significant clearing blood cultures negative can Dc antibiotics patient's CK is also increased white count is back down to normal Qualifiers: Chronicity: acute on chronic (2) Delirium Current Visit: Yes Status: Acute Plan: Patient is delirious agitated no evidence of infection Dc antibiotics Dc steroids I have added bronchodilators patient's vital signs are stable hemodynamically stable consider L tach
--- NOTE | 2017-12-03 09:10 | RAD REPORT ---
EXAM DESCRIPTION: RAD - Chest Single View - 12/03/2017 6:34 am CLINICAL HISTORY: ARF Chest pain. COMPARISON: Chest Single View dated 12/02/2017; Chest Single View dated 12/01/2017; Chest Single Vie w dated 11/30/2017; Abdomen Acute Series dated 09/18/2017 FINDINGS: Portable technique limits examination quality. Mild interstitial pulmonary edema is present. Trace pleural fluid is present bilaterally. The heart i s moderately enlarged in size. No displaced fractures.Left posterior old rib fractures present. IMPRESSION: Mild CHF versus volume overload pattern.
[2017-12-03] MEDS: ARFORMOTEROL TARTRATE 15 MCG/2 ML VIAL.NEB NEB SCH ×2 (09:18→20:40)
[2017-12-03] MEDS: LIDOCAINE 5% PATCH TOP SCH (09:41)
[2017-12-03] MEDS: FUROSEMIDE 20 MG/ 2ML VIAL IV SCH (09:41)
[2017-12-03] MEDS: THIAMINE 200 MG/2 ML INJ IVP SCH (09:41)
--- NOTE | 2017-12-03 11:06 | P.PN ---
Subjective Date of Service: 12/03/17 Primary Care Provider: None Chief Complaint: Delirium Patient seen and examined at bedside with RN. Chart reviewed. Case discussed with cardiology, pulmonology, nursing staff at bedside. Patient agitated overnight. This morning continues to be agitated as well. Overnight Desaturated to 85% was placed on Venti mask. Also Had a run of vtach and increased on Aminodrone. LTAC referral placed. Review of Systems 10-point ROS is otherwise unremarkable Physical Examination - Vital Signs Temperature: 97.8 F Blood Pressure: 145/61 Pulse: 76 Respirations: 20 Pulse Ox (%): 96 - Physical Exam General: In no apparent distress, Confused HEENT: Atraumatic, PERRLA, EOMI Neck: Supple, JVD not distended Respiratory: Clear to auscultation bilaterally, Normal air movement Cardiovascular: Regular rate/rhythm, Normal S1 S2 Gastrointestinal: Normal bowel sounds, No tenderness Musculoskeletal: No tenderness Integumentary: No rashes Neurological: Normal speech, Normal tone, Normal affect Lymphatics: No axilla or inguinal lymphadenopathy - Studies Microbiology Data (last 24 hrs): 11/30/17 08:40 Sputum Gram Stain - Final 11/30/17 08:40 Sputum Culture & Sensitivity - Final Medications List Reviewed: Yes Assessment And Plan - Current Problems (Diagnosis) (1) Cardiopulmonary arrest with successful resuscitation Onset Date: 12/03/17 Current Visit: Yes Status: Acute Plan: Cardiopulmonary Arrest with Successful Resuscitation. Most Likely multifactorial -S/P Intubation and Shock x 2 in the ER -initially with pulseless V-tach after shock patient was in VFib. -On IV amiodrone. Increased to 2mg/hr now -Pulmonology and Cardiology consulted. -Doing well overall. Successful Resuscitation (2) Altered mental status Onset Date: 12/03/17 Current Visit: Yes Status: Acute Plan: AMS with Agitation -Head CT negative -MRI Pending -negative for alcohol abuse. past use -Maybe toxic encephalopathy vs brain injury during Cardiopulmonary arrest -Ativan and Haldol PRN Qualifiers: Altered mental status type: disorientation Qualified Code(s): R41.0 - Disorientation, unspecified (3) Septic shock Onset Date: 12/03/17 Current Visit: Yes Status: Acute Plan: Sepsis with Shock. Improved now -Lactic acid with 11.1 trending down now -Blood, urine and sputum culture negative thus far -IV vanc and zosyn. Will conitnue for now till culture negative -Weaned off Levophed and Dopamine for now (4) PNA (pneumonia) Onset Date: 12/03/17 Current Visit: Yes Status: Acute Plan: Pt with H/o Fever, chills and cough -Xray with Opacity and Edema -Procal negative however PNA cannot be ruled out -Continue with IV abx -sputum culture pending (5) Elevated troponin Onset Date: 12/03/17 Current Visit: Yes Status: Acute Plan: Elevated troponin along with CK MB. EKG with right bundle branch block along with atrial fibrillation with RVR initially and then to pulseless V-tach. -currently patient placed on weight based Lovenox. Restarted on BB now -cardiology consulted. Appreciate Reccs -Weaned off the IV dopamine for cardiogenic shock. -echocardiogram with EF of 25% and Poor compliance -Elevated Troponin and CKMB -Patient may need CATH in future (6) Acute renal failure Onset Date: 12/03/17 Current Visit: Yes Status: Acute Plan: Acute renal failure most likely secondary to cardiopulmonary arrest and volume depletion -IV fluids on hold at this time due to poor EF and compliance on echocardiogram -will monitor patient's kidney function closely. -will get nephrology if needed Qualifiers: Acute renal failure type: with acute tubular necrosis Qualified Code(s): N17.0 - Acute kidney failure with tubular necrosis (7) CHF (congestive heart failure) Onset Date: 12/03/17 Current Visit: Yes Status: Acute Plan: Acute congestive heart failure. -Weaned off IV dopamine. Started on IV lasix with Stable BP -cardiology consulted. Reccs Appreciated -ECHO with EF with 25% and Poor Complaince Qualifiers: Heart failure type: unspecified Heart failure chronicity: acute Qualified Code(s): I50.9 - Heart failure, unspecified (8) COPD (chronic obstructive pulmonary disease) Onset Date: 12/03/17 Current Visit: Yes Status: Chronic Plan: COPD with acute exacerbation most likely secondary to pneumonia versus cardiac etiology -DuoNeb, steroids,NC at this time -pulmonology consulted. Recommendation at this time Qualifiers: COPD type: COPD with acute exacerbation Qualified Code(s): J44.1 - Chronic obstructive pulmonary disease with (acute) exacerbation - Plan Patient will be admitted to the ICU for further care. Currently patient is status post cardiopulmonary arrest. Pulmonology and cardiology has been consulted on the case. Patient will be treated with IV amiodarone, and antibiotics. making improvement but continues to be Alerted. LTAC referral Placed
--- NOTE | 2017-12-03 11:44 | RAD REPORT ---
EXAM DESCRIPTION: RAD - Abdomen 1 View (KUB) - 12/03/2017 11:37 am CLINICAL HISTORY: dobhoff placement Pain COMPARISON: No comparisons FINDINGS: The tip of the enteric tube is in the stomach.
[2017-12-03] MEDS ORDERED: MAGNESIUM SULF 1GM/2ML VIAL IV ONE (12:44)
[2017-12-03] MEDS ORDERED: EPINEPHrine 1 MG/10 ML SYR IV ONE (12:44)
[2017-12-03] MEDS ORDERED: AMIODARONE HCL 150 MG/3 ML INJ IV ONE (12:44)
[2017-12-03] MEDS ORDERED: JEVITY 1.5 CAL LIQUID 1,000 ML BOT RTH SCH (20:00)
[2017-12-03] MEDS: HYDROCODONE/APAP 10/325 TAB PO PRN (20:42)
--- NOTE | 2017-12-03 20:43 | P.CNS ---
Date of Consult: 12/03/17 Reason for Consult: DEIRDRE/ CKD Requesting Physician: Mildred Roque Primary Care Provider: None Chief Complaint: Delirium History of Present Illness: This is a 82-year-old male with significant past medical history of high blood pressure, diabetes, hyperlipidemia, COPD, former smoker, who presented to the ED complaining of having shortness of breath. Patient stated to the EMS that he has been having some shortness of breath for past 3 days. Family at bedside states that patient was having fever and chills last night. Took Advil and woke up this morning looking beard and dusky thus family called 911 for further treatment. When EMS arrived at the house patient was brought over to the ER on her outpatient did become more lethargic and somnolent. In the ER patient was found to have pulseless V-tach and thus was resuscitated with 2 rounds of shock with epinephrine. Patient was successfully resuscitated and was referred over for admission for further care. 08:47 This 82 yrs old Male presents to ER via Unassigned with complaints of sob. rn 08:47 The patient has shortness of breath at rest. Onset: The symptoms/episode began/occurred rn 2 day(s) ago. Duration: The symptoms are continuous. The patient's shortness of breath is aggravated by exertion, light activity, supine position. Severity of symptoms: At their worst the symptoms were moderate in the emergency department the symptoms are worse. The patient has experienced similar episodes in the past. Per , sob over last few days, hx of COPD, no chest pain, got worse today, called 911, was talking to EMS, fighting facemask, immediately upon arrival here became somnolent, unresponsive, tachycardic and irregular, difficult to feel pulse, CPR begun.. Allergies alprazolam [From Xanax] Allergy (Verified 12/01/17 00:36) AMS ziprasidone [From Geodon] Allergy (Verified 12/01/17 00:36) AMS Home medications list reviewed: Yes Home Medications: Atenolol [Tenormin*] 50 mg PO BID 04/16/13 Budesonide/Formoterol Fumarate [Symbicort 160-4.5 Mcg Inhaler] 1 spray IH DAILY 04/16/13 Lisinopril [Prinivil*] 20 mg PO DAILY 04/16/13 Simvastatin [Zocor*] 40 mg PO DAILY 04/16/13 Temazepam [Restoril] 15 mg PO BEDTIME 04/16/13 Tiotropium Bartley [Spiriva] 1 spray IH DAILY 04/16/13 hydroCHLOROthiazide [Hydrochlorothiazide*] 12.5 mg PO DAILY 04/16/13 Allopurinol 300 mg PO DAILY 11/30/17 Pregabalin [Lyrica] 150 mg PO BID 11/30/17 Finasteride 5 mg PO DAILY 12/03/17 - Past Medical/Surgical History Diabetic: No -: COPD -: HTN -: History of Throat Cancer -: Hyperlipidemia -: Anxiety -: Hernia -: fistula surgery -: plastic artery insert left leg Psychosocial/ Personal History: . - Family History Mother Medical History: Cancer Notes: Leukemia - Social History Smoking Status: Former smoker Alcohol use: Yes CD- Drugs: No Caffeine use: Yes Place of Residence: Home Review of Systems is unable to be obtained Physical Examination Temp Pulse Resp BP Pulse Ox 99.4 F 73 18 143/64 H 95 12/03/17 16:00 12/03/17 18:00 12/03/17 18:00 12/03/17 18:00 12/03/17 18:00 General: Mild distress, Other (DMM.) Neck: Supple Respiratory: Clear to auscultation bilaterally Cardiovascular: No edema Gastrointestinal: Soft and benign, Non-distended, Other (NGT) Musculoskeletal: No clubbing, No contractures, No warmth Integumentary: No rashes, No cyanosis Neurological: Normal speech Urinary: Dialysis catheter (Yellow urine) Blood work reviewed in the chart. Cr 2 Imagings Data: EXAM DESCRIPTION: RAD - Abdomen 1 View (KUB) - 12/03/2017 11:37 am CLINICAL HISTORY: dobhoff placement Pain COMPARISON: No comparisons FINDINGS: The tip of the enteric tube is in the stomach EXAM DESCRIPTION: RAD - Chest Single View - 12/03/2017 6:34 am CLINICAL HISTORY: ARF Chest pain. COMPARISON: Chest Single View dated 12/02/2017; Chest Single View dated 2017; Chest Single View dated 11/30/2017; Abdomen Acute Series dated 09/18/2017 FINDINGS: Portable technique limits examination quality. Mild interstitial pulmonary edema is present. Trace pleural fluid is present bilaterally. The heart is moderately enlarged in size. No displaced fractures.Left posterior old rib fractures present. IMPRESSION: Mild CHF versus volume overload pattern EXAM DESCRIPTION: CT - Thorax Wo Con - 12/02/2017 1:54 pm CLINICAL HISTORY: Respiratory distress, respiratory failure COMPARISON: Portable chest December 02, CT chest April 2013 TECHNIQUE: Axial 5 mm thick images of the chest were obtained without IV contrast. All CT scans are performed using dose optimization technique as appropriate and may include automated exposure control or mA/KV adjustment according to patient size. FINDINGS: Motion degradation is present. Interstitial markings are prominent. Posterior lower lobe partial atelectasis noted. Small pleural effusions are present. Minimal infiltrate within the atelectatic lung is not excluded. No masslike consolidation. There are no air bronchograms seen. No pleural based mass. No pneumothorax. No abnormal mediastinal or hilar masses or lymphadenopathy seen. No gross aortic or pulmonary artery finding suspected. Assessment is limited in the absence of IV contrast. Cardiomegaly present without pericardial thickening or effusion. No chest wall mass or abnormal axillary lymphadenopathy. IMPRESSION: Minimal bilateral pleural effusions with posterior lung base atelectasis. Minimal infiltrate within the atelectatic lung not excluded. No large area of consolidation. Cardiomegaly and prominent interstitial markings supporting a mild CHF versus volume overload pattern. HEIGHT: 5 ft 10 in WEIGHT: 170 lb 0 oz DATE OF STUDY: 11/30/[address]: Mildred Roque MD 2-DIMENSIONAL: YES M.MODE: YES DOPPLER: YES COLOR FLOW: YES TDS: NO PORTABLE: YES DEFINITY: NO BUBBLE STUDY: NO DIAGNOSIS: ACUTE MYOCARDIAL INFARCTION CARDIAC HISTORY: CATHERIZATION: NO SURGERY: NO PROSTHETIC VALVE: NO PACEMAKER: NO MEASUREMENTS (cm) DIASTOLIC (NORMALS) SYSTOLIC (NORMALS) IVSd 0.9 (0.6-1.2) LA Diam 3.2 (1.9-4.0) LVEF 25% LVIDd 4.6 (3.5-5.7) LVIDs 4.1 (2.0-3.5) %FS 11% LVPWd 1.0 (0.6-1.2) Ao Diam 3.3 (2.0-3.7) 2 DIMENSIONAL ASSESSMENT: RIGHT ATRIUM: NORMAL LEFT ATRIUM: NORMAL RIGHT VENTRICLE: NORMAL LEFT VENTRICLE: NORMAL SIZE TRICUSPID VALVE: NORMAL MITRAL VALVE: NORMAL PULMONIC VALVE: NORMAL AORTIC VALVE: SCLEROSIS PERICARDIAL EFFUSION: NONE AORTIC ROOT: NORMAL LEFT VENTRICULAR WALL MOTION: SEVERE GLOBAL HYPOKINESIS. DOPPLER/COLOR FLOW: MILD MITRAL AND TRICUSPID REGURGITATION. COMMENTS: SEVERE GLOBAL HYPOKINESIS. EJECTION FRACTION 25%. MILD MITRAL AND TRICUSPID REGURGITATION. AORTIC SCLEROSIS. Conclusions/Impression: A/ DEIRDRE likely ATN in the setting of septic shock. CKD III with proteinuria. Hypokalemia. AMI/ CAD. Systolic CHF. Acute rhabdomyolysis. Acute hepatitis. DM II with CKD. Anemia in chronic illness. Hypoalbuminemia. Hypocalcemia. AMS. P/ Continue current POC and Medications. Supportive care as ordered. Agree with lasix. Replete lytes. Strict I/O. No NSAIDs. AM labs. Daily weight. Thank you kindly for the consultation. Greater than 30 minutes patient care.
[2017-12-03] MEDS: ATORVASTATIN 20 MG TAB PO SCH (21:00)
[2017-12-04] MEDS: INSULIN -REGULAR HUMAN 50 UNIT/0.5 ML ML SQ SCH ×3 (00:13→18:00)
[2017-12-04] MEDS: AMIODARONE HCL 450 MG in D5W 241 ML IV SCH (01:33)
--- NOTE | 2017-12-04 03:24 | PN ---
Date of Progress Note: 12/03/2017 Mr. Marie remains in the ICU, remains with rather altered mental status. Yesterday, he had signif icant ventricular tachycardia and I had increased his dose on the amiodarone drip from 0.5 to 1 mg. We will also get a potassium and magnesium. Today, he had multiple PVCs, very short run of ventricul ar tachycardia. No hemodynamic compromise. He is on carvedilol, not a candidate for JACK inhibitors or ARBs. There is a plan to send him to an LTAC. I will switch him to p.o. amiodarone. SHERI/EDVIN Voice ID: [id number] Report ID: [id number]
[2017-12-04] MEDS ORDERED: AMIODARONE HCL 200 MG TAB PO ONE (04:00)
[2017-12-04 05:32] LABS: Absolute Lymphocytes (CBC) 0.9 K/uL (0.7-4.9); Absolute Monocytes 1.4 K/uL (0.1-1.3); Absolute Neutrophil 13.2 K/uL (1.8-8.0); Basophils % 0.1 % (0-1.3); Hematocrit 28.6 % (39.6-49.0); MCH 28.4 pg (27.0-35.0); MCV 88.4 fL (80-100); MPV 10.5 fL (7.6-11.3); Monocytes % 8.7 % (3.3-12.3); RBC Red Blood Cell Count 3.24 M/uL (4.33-5.43)
[2017-12-04 05:52] LABS: Albumin 2.7 g/dL (3.4-5.0); Bilirubin Total 0.8 mg/dL (0.2-1.0); Magnesium 2.7 mg/dL (1.8-2.4); Phosphorus 2.7 mg/dL (2.5-4.9); Potassium 3.5 mmol/L (3.5-5.1); Protein, Total 6.1 g/dL (6.4-8.2)
[2017-12-04] MEDS: CARVEDILOL 3.125 MG TAB PO SCH ×2 (06:13→19:06)
[2017-12-04] MEDS: ENOXAPARIN 80 MG/0.8 ML SQ SCH ×2 (06:15→19:06)
[2017-12-04 06:50] LABS: CKMB Creatine Kinase MB 7.1 ng/mL (0.3-3.6)
[2017-12-04] MEDS ORDERED: POLYETHYL GLY 3350 17 GM/DOSE PO PRN (08:41)
[2017-12-04] MEDS: DOCUSATE NA 100 MG CAP PO SCH ×2 (08:50→21:00)
[2017-12-04] MEDS: AMIODARONE HCL 200 MG TAB PO SCH ×2 (08:55→20:32)
[2017-12-04] MEDS: FUROSEMIDE 20 MG/ 2ML VIAL IV SCH (08:55)
[2017-12-04] MEDS: THIAMINE 200 MG/2 ML INJ IVP SCH (08:55)
[2017-12-04] MEDS: LIDOCAINE 5% PATCH TOP SCH (08:55)
[2017-12-04] MEDS: POLYETHYL GLY 3350 17 GM/DOSE PO SCH (09:07)
[2017-12-04] MEDS: ARFORMOTEROL TARTRATE 15 MCG/2 ML VIAL.NEB NEB SCH ×2 (11:30→19:56)
[2017-12-04] MEDS: ATORVASTATIN 20 MG TAB PO SCH (21:00)
[2017-12-04] MEDS: HYDROCODONE/APAP 10/325 TAB PO PRN (21:28)
[2017-12-05] MEDS: INSULIN -REGULAR HUMAN 50 UNIT/0.5 ML ML SQ SCH ×4 (00:10→18:33)
--- NOTE | 2017-12-05 01:32 | PN ---
Date of Progress Note: 12/04/2017 Subjective: The patient is seen and examined. Chart reviewed and case discussed with RN. Code status is do not resuscitate. The patient continues to be confused and not very responsive to follow commands. Review of Systems: Limited due to the patient's medical condition. Medications: List reviewed. Code status: DNR Physical Examination: Vital Signs: Temperature 97.9, heart rate 65, blood pressure 144/78, respirations 17, O2 97% on 2 L via nasal cannula. General: Awake, alert, not oriented to self, in some mild distress. Elderly male, somewhat ill-appearing. CV: S1, S2. Peripheral pulses present. Respiratory: Moving air well bilaterally. No wheezing. Gastrointestinal: Abdomen is soft, nontender, nondistended. Positive bowel sounds. Extremities: No clubbing, cyanosis, or edema. Neuro: The patient opens eyes spontaneously. Moves all 4 extremities, and does not follow commands very well, and follows commands intermittently. Laboratory Data: Sodium 145, potassium 3.5, chloride 110, CO2 26, BUN 61, creatinine 1.8, glucose 196, calcium 7.6. Magnesium 2.7. AST 58, ALT 118. CK is 1026. Albumin is 2.7. WBC 15.5, H and H 9.2 and 28.6, platelets 196, neutrophils 85%. Blood cultures, no growth to date. Urine culture, no growth. Assessment: An 82-year-old male with: 1. Acute respiratory failure. The patient now extubated and doing well on supplemental oxygen via 2 L nasal cannula. 2. Nonsustained ventricular tachycardia. The patient's amiodarone dose increased. Appreciate Dr. Bermudez's input. 3. Cardiopulmonary arrest, status post resuscitation. The patient was initially in pulseless ventricular tachycardia and after shock, the patient went into ventricular fibrillation. Currently on amiodarone p.o. The patient' s code status is do not resuscitate. 4. Acute metabolic encephalopathy likely secondary to cardiopulmonary arrest versus toxic encephalopathy. The patient does have some electrolyte abnormalities including hypermagnesemia. The patient having multiple episodes of agitation requiring restraints and received Haldol twice last night. CT of the head was negative. Continue Ativan and Haldol p.r.n. 5. Acute delirium with agitation. Continue Haldol. Likely secondary to above. 6. Septic shock, improving. Lactic acid trending down. Cultures negative to date, on IV antibiotics. The patient now off pressors. His blood pressures are holding stable. We will narrow down antibiotics. 7. Pneumonia. The patient came in with fever, chills, cough. Chest x-ray did show some opacity with edema. Repeat sputum culture pending. Treated with antibiotics. 8. Elevated troponin level secondary to cardiopulmonary arrest, atrial fibrillation and due to the pulseless ventricular tachycardia, on beta-luis. 9. Cardiac arrhythmias right bundle-branch block with atrial fibrillation and pulseless ventricular tachycardia, currently on beta-blockers and amiodarone. Cardiology on board. Echocardiogram shows ejection fraction of 25% with poor compliance of the left ventricle. May need further cardiac workup in the future if his mental condition improves. 10. Acute kidney injury secondary to cardiopulmonary arrest and volume depletion, improving. Appreciate Nephrology input. The patient does have a very low ejection fraction. We will continue to monitor creatinine and avoid NSAIDs and nephrotoxins. The patient did have some acute tubular necrosis with the acute kidney injury, improving. 11. Acute congestive heart failure with systolic dysfunction. Weaned off dopamine. We will continue on diuretics. Blood pressure is stable and continue with his fluid restriction and sodium restriction. Echocardiogram shows ejection fraction of 25%. 12. Chronic obstructive pulmonary disease with acute exacerbation secondary to pneumonia and cardiac etiology. We will continue steroids and breathing treatments. The patient is still on supplemental oxygen via nasal cannula. Appreciate Pulmonology input. Plan: Continue close monitoring in ICU setting. The patient is still unable to tolerate p.o. We will continue with NG tube feedings. The patient could be transferred to LTAC if improves, however, still requiring medications for agitation. We will try to discontinue restraints if the patient is able to tolerate being off the restraints. We will monitor electrolytes. Monitor CK level. White count is still elevated. Antibiotics were discontinued by Pulmonology as there is no apparent source of infection. Overall poor prognosis. SA/MODL Voice ID: [id number] Report ID: [id number] IRMA
[2017-12-05] MEDS: ENOXAPARIN 80 MG/0.8 ML SQ SCH (05:04)
[2017-12-05] MEDS: CARVEDILOL 3.125 MG TAB PO SCH ×2 (05:04→17:07)
[2017-12-05 05:20] VITALS: BMI 22.6
[2017-12-05 05:41] LABS: Absolute Lymphocytes (CBC) 1.7 K/uL (0.7-4.9); Absolute Monocytes 1.2 K/uL (0.1-1.3); Absolute Neutrophil 12.9 K/uL (1.8-8.0); Basophils % 0.2 % (0-1.3); Eosinophils % 0.3 % (0-4.4); Hematocrit 28.3 % (39.6-49.0); Lymphocytes % 10.7 % (15.3-44.8); MCH 28.6 pg (27.0-35.0); MCV 88.5 fL (80-100); MPV 10.8 fL (7.6-11.3); Monocytes % 7.6 % (3.3-12.3)
[2017-12-05 05:54] LABS: Albumin 2.7 g/dL (3.4-5.0); Bilirubin Total 0.7 mg/dL (0.2-1.0)
[2017-12-05] MEDS: ARFORMOTEROL TARTRATE 15 MCG/2 ML VIAL.NEB NEB SCH ×2 (08:03→20:40)
[2017-12-05 08:07] LABS: Anisocytosis 2+; Blood Morphology Comment NOTED (NOT SEEN); Platelet Estimate ADEQ; Polychromasia 1+; Urine White Blood Cell Casts OK
[2017-12-05] MEDS: DOCUSATE NA 100 MG CAP PO SCH ×2 (09:00→20:42)
[2017-12-05] MEDS: FUROSEMIDE 20 MG/ 2ML VIAL IV SCH (09:31)
[2017-12-05] MEDS: LIDOCAINE 5% PATCH TOP SCH (09:32)
[2017-12-05] MEDS: POLYETHYL GLY 3350 17 GM/DOSE PO SCH (09:32)
[2017-12-05] MEDS: KCL 20 MEQ/100 mL IVPB 20 MEQ/100 ML BAG IV SCH ×2 (09:32→13:24)
[2017-12-05] MEDS: THIAMINE 200 MG/2 ML INJ IVP SCH (09:32)
[2017-12-05] MEDS: AMIODARONE HCL 200 MG TAB PO SCH ×2 (09:33→20:43)
--- NOTE | 2017-12-05 12:18 | P.PN ---
Subjective Date of Service: 12/05/17 Primary Care Provider: None Chief Complaint: Delirium, swelling of the left chest Patient is alert still agitated on BiPAP. Patient has developed a new swelling on the left chest I suspect is a hematoma he has had recent CPR and is being on anticoagulants according to family members patient was very active at his baseline prior to this incident. Patient is now DNR he does not want to be transferred to any long-term care facility now slightly hypernatremic Physical Examination - Vital Signs Temperature: 97.8 F Blood Pressure: 133/58 Pulse: 76 Respirations: 12 Pulse Ox (%): 96 - Physical Exam General: Alert, Moderate distress Respiratory: Clear to auscultation bilaterally, Other (Patient has swelling in the left chest most likely a hematoma) Cardiovascular: No edema, Normal S1 S2 - Studies Microbiology Data (last 24 hrs): 11/30/17 08:30 Blood - Blood Anaerobic Blood Culture - Final No growth in 5 days. 11/30/17 08:45 Blood - Blood Anaerobic Blood Culture - Final No growth in 5 days. Medications List Reviewed: Yes Assessment & Plan - Problems (Diagnosis) (1) Respiratory failure Onset Date: 12/03/17 Current Visit: Yes Status: Resolved Plan: Patient developed some respiratory distress is currently on BiPAP and is tolerating it fairly well continue with bronchodilators Qualifiers: Chronicity: acute on chronic (2) Delirium Onset Date: 12/03/17 Current Visit: Yes Status: Acute Plan: Is condition is improving (3) Hematoma Current Visit: Yes Status: Acute Plan: Patient has a swelling and his left chest which is new I suspect is a hematoma from recent CPR and patient is on anticoagulants CT scan of the chest possible drainage (4) Hypernatremia Current Visit: Yes Status: Acute Plan: Higher Dc IV Lasix resume NG tube fluids for now
[2017-12-05 12:25] LABS: Arterial Blood Carboxyhemoglob 2.2 % (0-1.5); Blood Gas Oxyhemoglobin 90.7 % (94-97)
--- NOTE | 2017-12-05 13:10 | RAD REPORT ---
EXAM DESCRIPTION: CT - Thorax Wo Con - 12/05/2017 12:45 pm CLINICAL HISTORY: Chest wall mass, chest pain, abnormal chest film COMPARISON: Portable chest December 03 TECHNIQUE: Axial 5 mm thick images of the chest were obtained without IV contrast. All CT scans are performed using dose optimization technique as appropriate and may include automated exposure control or mA/KV adjustment according to patient size. FINDINGS: Trace amount of pleural fluid and atelectasis present posterior mid and lower right lung f ield appears slightly greater atelectasis and fluid noted in the mid and lower left lung field. Inter stitial markings are mildly prominent matching the CHF history. No large mass or consolidation within the lung parenchyma. No pneumothorax or pleural based mass. No abnormal mediastinal or hilar masses or lymphadenopathy seen. No gross aortic or pulmonary artery finding suspected. Assessment is limited in the absence of IV contrast. No pericardial effusion. There is a very large left anterior chest soft tissue hematoma. This is deep to the pectoralis major muscle. This is within or involves the pectoralis minor. Heterogeneous attenuation is present. Hemato ma measures 15 cm CC x 13 cm TR x 5 cm CC. There is additional contusion and edema change in the subc utaneous fatty tissues extending from the axilla inferiorly to the lower chest. No air or foreign bod y seen. Nondisplaced anterior left fourth and fifth rib fractures are present. There is nondisplaced fracture of the anterior right fourth and sixth ribs. Left costosternal fracture is present at the left third - seventh ribs. Posterior displacement noted at the third rib fracture. There is angulation deformity at the sixth and seventh fractures. The recent November of 2027 study is difficult to compare due to the substantial amount of motion degradation present on that study. Chest wall hematoma is very likel y related to 1 or more of these fractures. It is unknown if the patient underwent any CPR or similar resuscitation process. No blunt force trauma history known. IMPRESSION: Large 15 x 13 x 5 cm left chest wall hematoma deep to the left pectoralis major muscle. Hematoma involves the pectoralis minor muscle. The patient has multiple anterior rib fractures and displaced fractures at the costosternal junctions . These are not clearly defined on the December 02 study due to significant respiratory motion degrada tion. Patient may have undergone recent CPR or similar resuscitation attempts. No active bleeding can be assessed in the absence of contrast. Hematoma is almost certainly related t o 1 or more of these displaced rib fractures. Small pleural fluid collection on the left and trace amount of pleural fluid on the right. No specifi c finding that would indicate this is hemothorax rather than pleural effusion. No pneumothorax or pul monary contusion.
--- NOTE | 2017-12-05 16:27 | P.PN ---
Date of Service: 12/04/17 Vital Signs Temp Pulse Resp BP Pulse Ox 97.8 F 76 12 133/58 L 96 12/05/17 12:18 12/05/17 12:18 12/05/17 12:18 12/05/17 12:18 12/05/17 12:18 Medications Hydrocodone Bitart/Acetaminophen ([place] 10/325) 1 tab PO Q6H PRN PRN Reason: PAIN MILD TO MODERATE Stop: 12/31/17 14:05 Last Admin: 12/04/17 21:28 Dose: 1 tab Albuterol Sulfate (Proventil 0.083% Neb Soln) 2.5 mg NEB Q6HP PRN PRN Reason: SHORTNESS OF BREATH Stop: 01/01/18 15:04 Amiodarone HCl (Cordarone Tab) 400 mg PO BID JO-ANN Stop: 01/03/18 09:01 Last Admin: 12/05/17 09:33 Dose: 400 mg Arformoterol Tartrate (Brovana) 15 mcg NEB BIDRESP JO-ANN Stop: 01/02/18 08:31 Last Admin: 12/05/17 08:03 Dose: 15 mcg Atorvastatin Calcium (Lipitor) 20 mg PO BEDTIME JO-ANN Stop: 12/30/17 21:01 Last Admin: 12/04/17 21:00 Dose: Not Given Carvedilol (Coreg) 3.125 mg PO BID 6AM 6PM JO-ANN Stop: 01/01/18 18:01 Last Admin: 12/05/17 05:04 Dose: 3.125 mg Docusate Sodium (Colace Cap) 100 mg PO BID JO-ANN Stop: 01/03/18 09:01 Last Admin: 12/05/17 09:00 Dose: Not Given Fentanyl Citrate (Sublimaze) 25 mcg IV Q4HP PRN PRN Reason: PAIN SEVERE Stop: 12/30/17 11:53 Last Admin: 12/03/17 14:44 Dose: 25 mcg Haloperidol Lactate (Haldol) 2 mg IV Q4H PRN PRN Reason: AGITATION Stop: 12/30/17 16:18 Last Admin: 12/03/17 11:20 Dose: 2 mg Amiodarone HCl 450 mg/ (Dextrose) 250 mls @ 33.33 mls/hr IV CONT JO-ANN Stop: 01/02/18 16:14 Last Admin: 12/04/17 01:33 Dose: 250 mls Insulin Human Regular (Novolin -R) 0 unit SQ Q6H JO-ANN; Protocol Stop: 01/03/18 12:01 Last Admin: 12/05/17 12:00 Dose: Not Given Ipratropium [place] (Atrovent Neb) 0.5 mg NEB Q6HP PRN PRN Reason: SHORTNESS OF BREATH Stop: 01/01/18 15:04 Last Admin: 12/03/17 20:40 Dose: 0.5 mg Lidocaine (Lidoderm 5% Patch) 1 patch TOP DAILY JO-ANN Stop: 12/31/17 14:38 Last Admin: 12/05/17 09:32 Dose: 1 patch Lorazepam (Ativan) 2 mg IV Q2HP PRN PRN Reason: SEDATION Stop: 12/30/17 11:53 Last Admin: 12/02/17 10:22 Dose: 2 mg Polyethylene Glycol (Glycolax) 17 gm PO DAILY JO-ANN Stop: 01/03/18 09:01 Last Admin: 12/05/17 09:32 Dose: 17 gm Potassium Bicarbonate (K-Lyte) 25 meq FT 1X ONE Stop: 12/05/17 16:23 Thiamine HCl (Vitamin B-1) 100 mg IVP DAILY JO-ANN Stop: 01/02/18 09:01 Last Admin: 12/05/17 09:32 Dose: 100 mg Microbiology Results 11/30/17 08:30 Blood - Blood Aerobic Blood Culture - Preliminary 11/30/17 08:30 Blood - Blood Gram Stain - Preliminary 11/30/17 08:30 Blood - Blood Anaerobic Blood Culture - Final No growth in 5 days. 11/30/17 08:45 Blood - Blood Aerobic Blood Culture - Preliminary 11/30/17 08:45 Blood - Blood Gram Stain - Preliminary 11/30/17 08:45 Blood - Blood Anaerobic Blood Culture - Final No growth in 5 days. 11/30/17 08:40 Sputum Gram Stain - Final 11/30/17 08:40 Sputum Culture & Sensitivity - Final 11/30/17 08:45 Nasopharnyx Influenza Type A Antigen Screen - Final 11/30/17 08:45 Nasopharnyx Influenza Type B Antigen Screen - Final Assessment/ Plan: Nephrology. Limited IH/ ROS due to AMS/ Bipap. Vitals, medications, blood work and imaging reviewed in the chart. General: Mild distress, Other (DMM.) Neck: Supple Respiratory: Clear to auscultation bilaterally Cardiovascular: No edema Gastrointestinal: Soft and benign, Non-distended, Other (NGT) Musculoskeletal: No clubbing, No contractures, No warmth Integumentary: No rashes, No cyanosis Neurological: Normal speech Urinary: Dialysis catheter (Yellow urine) Blood work reviewed in the chart. Cr 2 Imagings Data: EXAM DESCRIPTION: RAD - Abdomen 1 View (KUB) - 12/03/2017 11:37 am CLINICAL HISTORY: dobhoff placement Pain COMPARISON: No comparisons FINDINGS: The tip of the enteric tube is in the stomach EXAM DESCRIPTION: RAD - Chest Single View - 12/03/2017 6:34 am CLINICAL HISTORY: ARF Chest pain. COMPARISON: Chest Single View dated 12/02/2017; Chest Single View dated 2017; Chest Single View dated 11/30/2017; Abdomen Acute Series dated 09/18/2017 FINDINGS: Portable technique limits examination quality. Mild interstitial pulmonary edema is present. Trace pleural fluid is present bilaterally. The heart is moderately enlarged in size. No displaced fractures.Left posterior old rib fractures present. IMPRESSION: Mild CHF versus volume overload pattern EXAM DESCRIPTION: CT - Thorax Wo Con - 12/02/2017 1:54 pm CLINICAL HISTORY: Respiratory distress, respiratory failure COMPARISON: Portable chest December 02, CT chest April 2013 TECHNIQUE: Axial 5 mm thick images of the chest were obtained without IV contrast. All CT scans are performed using dose optimization technique as appropriate and may include automated exposure control or mA/KV adjustment according to patient size. FINDINGS: Motion degradation is present. Interstitial markings are prominent. Posterior lower lobe partial atelectasis noted. Small pleural effusions are present. Minimal infiltrate within the atelectatic lung is not excluded. No masslike consolidation. There are no air bronchograms seen. No pleural based mass. No pneumothorax. No abnormal mediastinal or hilar masses or lymphadenopathy seen. No gross aortic or pulmonary artery finding suspected. Assessment is limited in the absence of IV contrast. Cardiomegaly present without pericardial thickening or effusion. No chest wall mass or abnormal axillary lymphadenopathy. IMPRESSION: Minimal bilateral pleural effusions with posterior lung base atelectasis. Minimal infiltrate within the atelectatic lung not excluded. No large area of consolidation. Cardiomegaly and prominent interstitial markings supporting a mild CHF versus volume overload pattern. Greater than 30 minutes patient care. HEIGHT: 5 ft 10 in WEIGHT: 170 lb 0 oz DATE OF STUDY: 11/30/[address]: Mildred Roque MD 2-DIMENSIONAL: YES M.MODE: YES DOPPLER: YES COLOR FLOW: YES TDS: NO PORTABLE: YES DEFINITY: NO BUBBLE STUDY: NO DIAGNOSIS: ACUTE MYOCARDIAL INFARCTION CARDIAC HISTORY: CATHERIZATION: NO SURGERY: NO PROSTHETIC VALVE: NO PACEMAKER: NO MEASUREMENTS (cm) DIASTOLIC (NORMALS) SYSTOLIC (NORMALS) IVSd 0.9 (0.6-1.2) LA Diam 3.2 (1.9-4.0) LVEF 25% LVIDd 4.6 (3.5-5.7) LVIDs 4.1 (2.0-3.5) %FS 11% LVPWd 1.0 (0.6-1.2) Ao Diam 3.3 (2.0-3.7) 2 DIMENSIONAL ASSESSMENT: RIGHT ATRIUM: NORMAL LEFT ATRIUM: NORMAL RIGHT VENTRICLE: NORMAL LEFT VENTRICLE: NORMAL SIZE TRICUSPID VALVE: NORMAL MITRAL VALVE: NORMAL PULMONIC VALVE: NORMAL AORTIC VALVE: SCLEROSIS PERICARDIAL EFFUSION: NONE AORTIC ROOT: NORMAL LEFT VENTRICULAR WALL MOTION: SEVERE GLOBAL HYPOKINESIS. DOPPLER/COLOR FLOW: MILD MITRAL AND TRICUSPID REGURGITATION. COMMENTS: SEVERE GLOBAL HYPOKINESIS. EJECTION FRACTION 25%. MILD MITRAL AND TRICUSPID REGURGITATION. AORTIC SCLEROSIS. Conclusions/Impression: A/ DEIRDRE likely ATN in the setting of septic shock. CKD III with proteinuria. Hypokalemia. Hypernatremia. AMI/ CAD. Systolic CHF. Acute rhabdomyolysis. Acute hepatitis. DM II with CKD. Anemia in chronic illness. Hypoalbuminemia. Hypocalcemia. AMS. P/ Continue current POC and Medications. Potassium prn. Titrate insulin as needed. Agree with Bipap. Strict I/O. No NSAIDs. AM labs. Daily weight.
--- NOTE | 2017-12-05 16:58 | PN ---
Date of Progress Note: 12/05/2017 History: The patient is seen and examined. Chart reviewed and case discussed with RN. The patient continues to deteriorate. He is becoming more apneic now. I spoke with family at length and they do not wish to have any heroic measures such as re-intubation or mechanical ventilation. The patient's code status has been changed to do not resuscitate. They understand that the patient 's condition is deteriorating. They do wish to move forward with hospice after remainder of the family members were able to see the patient. Case discussed with Dr. Patel. Review of Systems: Limited due to patient's medical condition. Per nursing staff, the patient did not have much agitation last night. Medications: List reviewed. Physical Examination: Vital Signs: Temperature 97.8, heart rate 76, blood pressure 138/64, respirations 16, O2 95% on room air. General: Awake, alert, not oriented. Does track. Ill-appearing elderly male, pale. CV: S1, S2. Peripheral pulses present. Respiratory: Diminished breath sounds at the bases. No wheezing. Gastrointestinal: Abdomen is soft, nondistended. Positive bowel sounds. No guarding or rigidity. Extremities: No clubbing, cyanosis, or edema. Neurologic: Nonfocal. The patient does track with his eyes, however, does not follow any commands. Moves all 4 extremities. Opens eyes spontaneously. Skin: Multiple skin tears, bandaged. Laboratory Data: Sodium 148, potassium 3, chloride 110, CO2 29, BUN 47, creatinine 1.2, glucose 148, calcium 7.9. CK 466, AST 35, ALT 90, albumin 2.7. WBC 15.8, H and H 9.1, 28.3, platelets 199, neutrophils 81%. Blood cultures negative final. Sputum and urine culture no growth. Assessment And Plan: An 82-year-old male with: 1. Acute respiratory failure, now extubated, however, having multiple apneic episodes, likely related to possible traumatic brain injury including from anoxic brain injury following a cardiopulmonary arrest. We will place on BiPAP and check ABG. 2. Nonsustained ventricular tachycardia. Amiodarone now switched to p.o. Appreciate Cardiology input. The patient continues to be having atrioventricular arrhythmia. 3. Cardiopulmonary arrest, status post resuscitation. The patient initially in pulseless ventricular tachycardia and then was shocked, went into ventricular fibrillation, shocked again. The patient doing better. Still having some arrhythmias, on amiodarone. 4. Acute metabolic encephalopathy, likely due to cardiopulmonary arrest versus toxic encephalopathy or electrolyte abnormalities. Not as agitated today. 5. Acute delirium with agitation. Continue Haldol p.r.n. likely secondary to above. 6. Septic shock, improving. White count still elevated at 15. No signs of acute infection. Antibiotics were discontinued. Cultures negative to date. No fevers. 7. Pneumonia. The patient had symptoms of fever, chills, cough. X-ray showing some opacity with edema, improved. 8. Elevated troponin level secondary to cardiopulmonary arrest, atrial fibrillation, and due to pulseless ventricular tachycardia. We will continue beta-luis. 9. Right bundle-branch block. The patient also had atrial fibrillation and possible ventricular tachycardia. Continue beta-blockers and amiodarone. The patient has very poor ejection fraction. Echo shows EF of 25% with poor compliance. No further cardiac workup at this time. 10. Acute kidney injury secondary to cardiopulmonary arrest, volume depletion along with acute tubular necrosis, improving. The creatinine has normalized today. We will continue to monitor creatinine level and avoid NSAIDs and nephrotoxins. Appreciate Nephrology input. 11. Chronic obstructive pulmonary disease with acute exacerbation secondary to pneumonia and cardiac etiology. We will continue breathing treatments, steroids. The patient to be placed back on BiPAP. We will check ABG. 12. Gastrointestinal, deep vein thrombosis prophylaxis addressed. 13. Acute congestive heart failure with systolic dysfunction, EF of 25%. We will continue with fluid restriction, 2 g sodium restriction, weights. Plan: Overall patient's condition is deteriorating. We will schedule for an MRI of the brain to further evaluate his metabolic encephalopathy. However, given his condition and apneic episodes, not safe for him to go down to MRI for 30-45 minutes. Family at this point are going towards hospice care and palliative care. They do not wish to have him be placed back on the ventilator or have repeat CPR. Rest of the family members are arriving shortly. We will step down patient to a tele floor so that family members can be with the patient without ICU driving restrictions and will initiate palliative care. Overall poor prognosis. Family understands that hospice/palliative care is geared towards care and comfort measures and not invasive active treatment. They understand that without resuscitative measures patient will likely not survive and will succumb to his illness. ADDENDUM: CT chest results discussed with patient, Dr. Patel and Dr. Esparza. Patients family do not wish to pursue any further invasive measurement such as IR drainage. Dr. Esparza does not recommend surgical intervention at this time. Likely cause if post CPR rib fractures; internal mammary artery bleed. [facility] chosen by family. /EDVIN Voice ID: [id number] Report ID: [id number]
[2017-12-05] MEDS ORDERED: POTASSIUM 25 MEQ EFFERV TAB FT ONE (17:00)
[2017-12-05] MEDS ORDERED: JEVITY 1.5 CAL LIQUID 1,000 ML BOT RTH SCH (17:00)
[2017-12-05 20:35] LABS: UR MICROALBUMIN 3.1 mg/dL (< 1.9)
[2017-12-05] MEDS: ATORVASTATIN 20 MG TAB PO SCH (20:43)
[2017-12-06] MEDS: INSULIN -REGULAR HUMAN 50 UNIT/0.5 ML ML SQ SCH ×3 (00:18→12:04)
[2017-12-06] MEDS: CARVEDILOL 3.125 MG TAB PO SCH (05:29)
[2017-12-06 06:41] LABS: Urine Appearance CLEAR; Urine Bilirubin NEGATIVE (NEG); Urine Blood NEGATIVE (NEG); Urine Color YELLOW; Urine Glucose NEGATIVE (NEG); Urine Protein NEGATIVE (NEG); Urine pH 5.5 (5.0-7.0)
[2017-12-06 06:47] LABS: Urine Bacteria <20 /HPF (NONE SEEN); Urine Culture Reflex Order REFLEXED; Urine RBC NONE SEEN /HPF (NONE SEEN)
[2017-12-06 07:59] LABS: Magnesium 2.1 mg/dL (1.8-2.4); Potassium 3.9 mmol/L (3.5-5.1)
[2017-12-06] MEDS: ARFORMOTEROL TARTRATE 15 MCG/2 ML VIAL.NEB NEB SCH (08:07)
[2017-12-06] MEDS: POLYETHYL GLY 3350 17 GM/DOSE PO SCH (09:00)
[2017-12-06] MEDS: DOCUSATE NA 100 MG CAP PO SCH (09:00)
[2017-12-06] MEDS: LIDOCAINE 5% PATCH TOP SCH ×2 (09:00→11:09)
[2017-12-06 09:14] VITALS: O2SAT 93
[2017-12-06 10:52] VITALS: BP 146/62; TEMP 97.7
[2017-12-06] MEDS: AMIODARONE HCL 200 MG TAB PO SCH (11:10)
[2017-12-06] MEDS: THIAMINE 200 MG/2 ML INJ IVP SCH (11:10)
[2017-12-06] MEDS: LORazepam 2 MG/ML VIAL IV PRN (12:05)
--- NOTE | 2017-12-06 21:20 | P.PN ---
Date of Service: 12/05/17 Vital Signs Temp Pulse Resp BP Pulse Ox 97.7 F 73 18 146/62 H 100 12/06/17 08:00 12/06/17 08:00 12/06/17 08:00 12/06/17 08:00 12/06/17 08:00 Microbiology Results 11/30/17 08:45 Blood - Blood Aerobic Blood Culture - Final 11/30/17 08:45 Blood - Blood Gram Stain - Final 11/30/17 08:45 Blood - Blood Anaerobic Blood Culture - Final No growth in 5 days. 11/30/17 08:30 Blood - Blood Aerobic Blood Culture - Final 11/30/17 08:30 Blood - Blood Gram Stain - Final 11/30/17 08:30 Blood - Blood Anaerobic Blood Culture - Final No growth in 5 days. 11/30/17 08:40 Sputum Gram Stain - Final 11/30/17 08:40 Sputum Culture & Sensitivity - Final 11/30/17 08:45 Nasopharnyx Influenza Type A Antigen Screen - Final 11/30/17 08:45 Nasopharnyx Influenza Type B Antigen Screen - Final Assessment/ Plan: Nephrology. Limited IH/ ROS due to AMS/ Bipap. Vitals, medications, blood work and imaging reviewed in the chart. General: Mild distress, Other (DMM.) Neck: Supple Respiratory: Clear to auscultation bilaterally Cardiovascular: No edema Gastrointestinal: Soft and benign, Non-distended, Other (NGT) Musculoskeletal: No clubbing, No contractures, No warmth Integumentary: No rashes, No cyanosis Neurological: Normal speech Urinary: Dialysis catheter (Yellow urine) Blood work reviewed in the chart. Cr 2 Imagings Data: EXAM DESCRIPTION: RAD - Abdomen 1 View (KUB) - 12/03/2017 11:37 am CLINICAL HISTORY: dobhoff placement Pain COMPARISON: No comparisons FINDINGS: The tip of the enteric tube is in the stomach EXAM DESCRIPTION: RAD - Chest Single View - 12/03/2017 6:34 am CLINICAL HISTORY: ARF Chest pain. COMPARISON: Chest Single View dated 12/02/2017; Chest Single View dated 2017; Chest Single View dated 11/30/2017; Abdomen Acute Series dated 09/18/2017 FINDINGS: Portable technique limits examination quality. Mild interstitial pulmonary edema is present. Trace pleural fluid is present bilaterally. The heart is moderately enlarged in size. No displaced fractures.Left posterior old rib fractures present. IMPRESSION: Mild CHF versus volume overload pattern EXAM DESCRIPTION: CT - Thorax Wo Con - 12/02/2017 1:54 pm CLINICAL HISTORY: Respiratory distress, respiratory failure COMPARISON: Portable chest December 02, CT chest April 2013 TECHNIQUE: Axial 5 mm thick images of the chest were obtained without IV contrast. All CT scans are performed using dose optimization technique as appropriate and may include automated exposure control or mA/KV adjustment according to patient size. FINDINGS: Motion degradation is present. Interstitial markings are prominent. Posterior lower lobe partial atelectasis noted. Small pleural effusions are present. Minimal infiltrate within the atelectatic lung is not excluded. No masslike consolidation. There are no air bronchograms seen. No pleural based mass. No pneumothorax. No abnormal mediastinal or hilar masses or lymphadenopathy seen. No gross aortic or pulmonary artery finding suspected. Assessment is limited in the absence of IV contrast. Cardiomegaly present without pericardial thickening or effusion. No chest wall mass or abnormal axillary lymphadenopathy. IMPRESSION: Minimal bilateral pleural effusions with posterior lung base atelectasis. Minimal infiltrate within the atelectatic lung not excluded. No large area of consolidation. Cardiomegaly and prominent interstitial markings supporting a mild CHF versus volume overload pattern. Greater than 30 minutes patient care. HEIGHT: 5 ft 10 in WEIGHT: 170 lb 0 oz DATE OF STUDY: 11/30/[address]: Mildred Roque MD 2-DIMENSIONAL: YES M.MODE: YES DOPPLER: YES COLOR FLOW: YES TDS: NO PORTABLE: YES DEFINITY: NO BUBBLE STUDY: NO DIAGNOSIS: ACUTE MYOCARDIAL INFARCTION CARDIAC HISTORY: CATHERIZATION: NO SURGERY: NO PROSTHETIC VALVE: NO PACEMAKER: NO MEASUREMENTS (cm) DIASTOLIC (NORMALS) SYSTOLIC (NORMALS) IVSd 0.9 (0.6-1.2) LA Diam 3.2 (1.9-4.0) LVEF 25% LVIDd 4.6 (3.5-5.7) LVIDs 4.1 (2.0-3.5) %FS 11% LVPWd 1.0 (0.6-1.2) Ao Diam 3.3 (2.0-3.7) 2 DIMENSIONAL ASSESSMENT: RIGHT ATRIUM: NORMAL LEFT ATRIUM: NORMAL RIGHT VENTRICLE: NORMAL LEFT VENTRICLE: NORMAL SIZE TRICUSPID VALVE: NORMAL MITRAL VALVE: NORMAL PULMONIC VALVE: NORMAL AORTIC VALVE: SCLEROSIS PERICARDIAL EFFUSION: NONE AORTIC ROOT: NORMAL LEFT VENTRICULAR WALL MOTION: SEVERE GLOBAL HYPOKINESIS. DOPPLER/COLOR FLOW: MILD MITRAL AND TRICUSPID REGURGITATION. COMMENTS: SEVERE GLOBAL HYPOKINESIS. EJECTION FRACTION 25%. MILD MITRAL AND TRICUSPID REGURGITATION. AORTIC SCLEROSIS. Conclusions/Impression: A/ DEIRDRE likely ATN in the setting of septic shock. CKD III with proteinuria. Hypokalemia. Hypernatremia. AMI/ CAD. Systolic CHF. Acute rhabdomyolysis. Acute hepatitis. DM II with CKD. Anemia in chronic illness. Hypoalbuminemia. Hypocalcemia. AMS. P/ Continue current POC and Medications. Increase free water through FT. Give potassium. Titrate insulin as needed. Agree with Bipap. Strict I/O. No NSAIDs. AM labs. Daily weight.
--- NOTE | 2017-12-07 04:11 | DS ---
Date of Discharge: 12/06/2017 Consultants: Dr. Patel, Pulmonology; Dr. Peñaloza, Nephrology; Dr. Bermudez, Cardiology. Admitting Diagnoses: 1.Cardiopulmonary arrest with successful resuscitation. 2.Septic shock. 3.Pneumonia. 4.Elevated troponin. 5.Acute kidney injury. 6.Congestive heart failure. 7.Chronic obstructive pulmonary disease with acute exacerbation. Discharge Diagnoses: 1.Acute respiratory failure, secondary to cardiopulmonary arrest. 2.Cardiopulmonary arrest. 3.Apneic episodes. 4.Nonsustained ventricular tachycardia. 5.Status post resuscitation. 6.Acute metabolic encephalopathy. 7.Acute delirium with agitation. 8.Septic shock. 9.Pneumonia, community acquired. 10.Elevated troponin level, secondary to cardiopulmonary arrest and arrhythmias. 11.Right bundle-branch block, atrial fibrillation and ventricular tachycardia, multiple other abnorm alities. 12.Acute kidney injury. 13.Elevated liver enzymes, secondary to cardiopulmonary arrest and hypoxic injury. 14.Possible hypoxic brain injury. 15.Chronic obstructive pulmonary disease with acute exacerbation. 16.Acute congestive heart failure, systolic dysfunction, ejection fraction of 25%. 17.Large left chest wall hematoma, secondary to cardiopulmonary resuscitation and rib fractures. Hospital Course: The patient is an 82-year-old male with past medical history of high blood pressure , emphysema, diabetes, hyperlipidemia, COPD, former smoker, history of throat cancer, anemia, comes i n with cardiopulmonary arrest. The patient was brought by EMS, lethargic and somnolent. In the ER, was found to be in pulseless ventricular tachycardia, was resuscitated with 2 rounds of shocks and ep inephrine. The patient successfully resuscitated and was admitted to the ICU. The patient did requi re mechanical ventilation and was seen by Dr. Bermudez with Cardiology and Dr. Patel with Pulmonolo gy. The patient did develop pneumonia and also had hypertensive shock, was on multiple pressors. Th e patient also had troponin elevation, likely due to the coronary event, had multiple arrhythmias. T he patient did well with weaning trials and was successfully extubated. He was eventually able to be taken off pressors as well. The patient remained confused and since then his mental status deterior ated. The patient did not have any further cardiopulmonary arrest. However, due to his septic shock , he had multiorgan failure with kidney dysfunction as well as liver dysfunction. His creatinine did improve. He was seen by Dr. Peñaloza. His liver function also improved and essentially normalized. However, the patient's mental status continued to deteriorate. He was not following commands, initi ally was tracking, however continued to deteriorate. He was on IV antibiotics for his pneumonia. Hi s cultures did not show any growth. The patient began to have apneic episodes and also developed hem atoma after the CPR on the left side of the chest. Dr. Patel was consulted. He did not recommend any surgical evacuation as that may make it worse. He did recommend Interventional Radiology to jaret in the hematoma; however, speaking with the family, they did not wish to pursue any further invasive measurements and declined drainage of the hematoma. This was not causing his apneic episodes. Regar ding his mental status, the patient initially was to be taken down for MRI of the brain, however was unstable due to his apneic episodes. The patient's family then decided to make the patient 'Do Not R esuscitate' as his , daughter, and other family members mentioned that he was a very active perso n and would not want to live in a state where he was bed bound and requires total care. Therefore, h e would be 'Do Not Resuscitate. They also opted for palliative care and comfort. They chose [facility] ospice who evaluated the patient and the patient was then transferred to inpatient hospice. The tana ent did have some electrolyte abnormalities as well. Overall, patient's condition is very poor. He was started on BiPAP due to his apneic episodes. He was also not able to tolerate any p.o. diet and was started on tube feeds. The patient's prognosis is very grave. He will likely not survive after BiPAP has been removed. In accordance with the decision makers' wishes, the patient has been DNR car e and comfort, and care has been transferred to hospice. Physical Examination: General: Asleep, not very responsive, does open eyes to sternal rub. Does not track. CV: S1, S2. Pulses present. Respiratory: Diminished breath sounds. No wheezing. Gastrointestinal: Abdomen is soft, nondistende d. Positive bowel sounds. Extremities: No clubbing, cyanosis, or edema. Neuro: The patient is largely obtunded. Nonresponsive. Does open eyes to sternal rub. Total time discharging the patient was 45 minutes. SA/MODL Voice ID: [id number] Report ID: [id number]
== END 2017-12-06 13:05 | disposition hospice, inpatient (51) | DRG 871 ==
LOC: ER 07:52 → ERHOLD 10:17 → 3RD-ICU 11:45 → 2ND 12-05 12:35
PROVIDERS: ADMIT Family Medicine; ATTEND Family Medicine
PROC: 0BH17EZ Insertion of Endotracheal Airway into Trachea, Via Natural or Artificial Opening (ICD-10-PCS; principal; 2017-11-30)
PROC: 5A1935Z Respiratory Ventilation, Less than 24 Consecutive Hours (ICD-10-PCS; 2017-11-30)
PROC: 5A12012 Performance of Cardiac Output, Single, Manual (ICD-10-PCS; 2017-11-30)
PROC: 06HY33Z Insertion of Infusion Device into Lower Vein, Percutaneous Approach (ICD-10-PCS; 2017-11-30)
PROC: 0DH67UZ Insertion of Feeding Device into Stomach, Via Natural or Artificial Opening (ICD-10-PCS; 2017-12-03)
PROC: 3E0G76Z Introduction of Nutritional Substance into Upper GI, Via Natural or Artificial Opening (ICD-10-PCS; 2017-12-03)
DX: A41.9 Sepsis, unspecified organism (principal); J18.9 Pneumonia, unspecified organism; R65.21 Severe sepsis with septic shock; J96.01 Acute respiratory failure with hypoxia; N17.0 Acute kidney failure with tubular necrosis; J96.02 Acute respiratory failure with hypercapnia; I50.23 Acute on chronic systolic (congestive) heart failure; G93.41 Metabolic encephalopathy; R57.0 Cardiogenic shock; J44.0 Chronic obstructive pulmonary disease with (acute) lower respiratory infection; J44.1 Chronic obstructive pulmonary disease with (acute) exacerbation; I47.2 Ventricular tachycardia; I13.0 Hypertensive heart and chronic kidney disease with heart failure and stage 1 through stage 4 chronic kidney disease, or unspecified chronic kidney disease; M62.82 Rhabdomyolysis; B17.9 Acute viral hepatitis, unspecified; E87.0 Hyperosmolality and hypernatremia; I45.10 Unspecified right bundle-branch block; I48.91 Unspecified atrial fibrillation; Z87.891 Personal history of nicotine dependence; Z85.01 Personal history of malignant neoplasm of esophagus; E78.5 Hyperlipidemia, unspecified; F41.9 Anxiety disorder, unspecified; E87.6 Hypokalemia; R41.0 Disorientation, unspecified; N18.3 Chronic kidney disease, stage 3 (moderate); E11.22 Type 2 diabetes mellitus with diabetic chronic kidney disease; R80.9 Proteinuria, unspecified; D63.8 Anemia in other chronic diseases classified elsewhere; E83.51 Hypocalcemia; Z66 Do not resuscitate; Z78.1 Physical restraint status; S20.212A Contusion of left front wall of thorax, initial encounter; X58.XXXA Exposure to other specified factors, initial encounter; Y93.89 Activity, other specified; Y92.238 Other place in hospital as the place of occurrence of the external cause; M84.38XA Stress fracture, other site, initial encounter for fracture
CPT/HCPCS: 31500; 36415; 51702; 70450; 71045; 71250; 74018; 80048; 80053; 80061; 80202; 81001; 81003; 81015; 82043; 82550; 82553; 82570; 82805; 82962; 83605; 83735; 83880; 84100; 84132; 84145; 84439; 84443; 84484; 84550; 85025; 85610; 85730; 87040; 87070; 87086; 87088; 87205; 87804; 92950; 93005; 93306; 94002; 94003; 94640; 94660; 99291; 99292; J0171; J0282; J1170; J1265; J1630; J1650; J1940; J2250; J2543; J2704; J2920; J3010; J3370; J3411; J3475; J7030; J7060; J7605

== ENCOUNTER 2017-12-06 13:05 | Inpatient (IN) | payer OTHER ==
[2017-12-06] MEDS ORDERED: HYOSCYAMINE SULF 0.125 MG TAB PO PRN (13:50)
[2017-12-06] MEDS ORDERED: ACETAMINOPHEN 650MG/RECT SUPP PR PRN (13:51)
[2017-12-06] MEDS ORDERED: BISACODYL 10 MG RECTAL SUPP PR PRN (13:51)
[2017-12-06] MEDS ORDERED: PROMETHAZINE 25 MG/SUPP PR PRN (13:52)
[2017-12-06] MEDS ORDERED: HALOPERIDOL LACT 5 MG/ML INJ IV PRN (13:55)
[2017-12-06] MEDS ORDERED: IPRATROPIUM BROM 0.5MG/2.5ML IH PRN (13:58)
[2017-12-06] MEDS ORDERED: ARFORMOTEROL TARTRATE 15 MCG/2 ML VIAL.NEB IH PRN (13:59)
[2017-12-06] MEDS: MORPHINE 2 MG/ML SYR IV SCH ×5 (14:00→22:00)
[2017-12-06] MEDS: LORazepam 2 MG/ML VIAL IV SCH ×3 (14:00→21:44)
[2017-12-06] MEDS: SCOPOLAMINE HYDROBROMIDE PATCH TD SCH ×2 (14:00→16:58)
[2017-12-06 15:37] VITALS: O2SAT 86
[2017-12-06 20:30] VITALS: BMI 22.5
[2017-12-06 21:25] VITALS: BP 101/52; TEMP 101.3
== END 2017-12-07 02:00 | disposition expired | DRG 189 ==
LOC: 2ND 13:05
PROVIDERS: ADMIT Family Medicine; ATTEND Family Medicine
DX: J96.00 Acute respiratory failure, unspecified whether with hypoxia or hypercapnia (principal); I46.9 Cardiac arrest, cause unspecified; Z66 Do not resuscitate
CPT/HCPCS: J2270